=== PATIENT | male | born 1935 | race Caucasian/White ===

== ENCOUNTER → 2018-02-24 | Outpatient (CLI) | payer MEDICARE ==
--- NOTE | 2018-02-24 08:58 | US ---
EXAMINATION TYPE: US abdomen comp/pelvis limited DATE OF EXAM: 02/24/2018 COMPARISON: NONE CLINICAL HISTORY: R10.9 ABD PAIN. Intermittent pelvic fullness EXAM MEASUREMENTS: Liver Length: 14.0 cm Gallbladder Wall: 0.3 cm CBD: 0.4 cm Spleen: 9.3 cm Right Kidney: 13.0 x 5.6 x 3.9 cm Left Kidney: 10.5 x 5.4 x 4.6 cm Technical limitations due to large amount of overlying bowel content Pancreas: Obscured by bowel gas Liver: only seen intercostally, possible hyperechoic area = 1.0cm Gallbladder: no evidence of stones CBD: appears wnl Spleen: appears wnl Right Kidney: multiple cystic areas, largest = 3.2 x 2.8 x 2.5cm, dense echogenic area lower = 0.9cm Left Kidney: no evidence of hydronephrosis Upper IVC: wnl Abd Aorta: limited evaluation due to overlying bowel content Bladder: appears wnl Bilateral Jets Seen yes Prostate appears prominent IMPRESSION: 1. Hyperechoic focus within the liver measures 1 cm and could reflect hemangioma. Consider correlatio n with CT. 2. Multiple right-sided renal cysts. Nonobstructing right-sided nephrolithiasis difficult to exclude. 3. Prostate enlargement.
== END | disposition home or self-care (01) ==
LOC: RADUSWWP 06:58
PROVIDERS: ATTEND Internal Medicine
DX: N28.1 Cyst of kidney, acquired (principal); N40.0 Benign prostatic hyperplasia without lower urinary tract symptoms
CPT/HCPCS: 76700; 76857

== ENCOUNTER 2019-08-28 14:51 | Emergency (ER) | payer MEDICARE ==
[2019-08-28 15:17] VITALS: TEMP 98.4
[2019-08-28 16:32] LABS: Amorphous Sediment,Urine Rare /hpf; Appearance,Urine Cloudy (Clear); Bilirubin,Urine Negative (Negative); Blood,Urine Small (Negative); Color,Urine Yellow; Glucose,Urine (UA) Negative (Negative); Ketones,Urine 2+ (Negative); Leukocyte Esterase,Urine Negative (Negative); Mucus,Urine Rare /hpf; Nitrite,Urine Negative (Negative); Protein,Urine Negative (Negative); RBC,Urine 16 /hpf (0-5); Specific Gravity,Urine 1.014 (1.001-1.035); Urobilinogen,Urine <2.0 mg/dL (<2.0); WBC,Urine <1 /hpf (0-5)
[2019-08-28] MEDS ORDERED: LIDOCAINE VISCOUS 2% 15 ML CUP MUCOUS MEM ONE (16:38)
[2019-08-28] MEDS ORDERED: DEXAMETHASONE SOD PHOSPHATE 10 MG/ML 1 ML VIAL IV STA (16:39)
[2019-08-28 17:08] LABS: Basophils # (A) 0.1 k/uL (0-0.2); Basophils % (A) 1 %; Eosinophils # (A) 0.2 k/uL (0-0.7); Eosinophils % (A) 2 %; HCT 44.6 % (39.0-53.0); HGB 14.8 gm/dL (13.0-17.5); Lymphocytes # (A) 0.4 k/uL (1.0-4.8); Lymphocytes % (A) 4 %; MCH 29.5 pg (25.0-35.0); MCHC 33.2 g/dL (31.0-37.0); MCV 88.7 fL (80.0-100.0); Mean Platelet Volume 6.9; Monocytes # (A) 0.5 k/uL (0-1.0); Monocytes % (A) 5 %; Neutrophils # (A) 9.3 k/uL (1.3-7.7); Neutrophils % (A) 88 %; Platelet Count 130 k/uL (150-450); RBC 5.03 m/uL (4.30-5.90); RDW 13.4 % (11.5-15.5); WBC 10.7 k/uL (3.8-10.6)
[2019-08-28 17:20] LABS: ALT 24 U/L (21-72); AST 24 U/L (17-59); African American GFR (CKD) >90 (>60 ml/min/1.73 sqM); Albumin 3.8 g/dL (3.5-5.0); Alkaline Phosphatase 38 U/L (38-126); Anion Gap 7 mmol/L; Blood Urea Nitrogen 13 mg/dL (9-20); Calcium 8.8 mg/dL (8.4-10.2); Carbon Dioxide 29 mmol/L (22-30); Chloride 102 mmol/L (98-107); Glucose 138 mg/dL (74-99); Potassium 3.5 mmol/L (3.5-5.1); Sodium 138 mmol/L (137-145); Total Protein 6.4 g/dL (6.3-8.2)
[2019-08-28] MEDS ORDERED: SODIUM CHLORIDE 0.9% 1,000 ML IV ONE (18:10)
--- NOTE | 2019-08-28 18:32 | CT ---
EXAMINATION TYPE: CT soft tissue neck w con DATE OF EXAM: 08/28/2019 6:15 PM COMPARISON: None HISTORY: weakness, sore throat CT DLP: 218.5 mGycm Automated exposure control for dose reduction was used. CONTRAST: CT scan of the neck is performed following with IV Contrast, patient injected with 100 mL of Isovue 3 00. Axial images are obtained, coronal and sagittal reformatted images are reviewed. FINDINGS: There are small cysts in both thyroid lobes. Superior mediastinum is intact without evidence of adeno thiago. The trachea is intact. Epiglottis appears normal. Subglottic and glottic trachea appear normal . The prevertebral soft tissues are not enlarged. The tongue appears symmetric. Parotid glands are symmetric. Submandibular salivary glands are symmetric. There is normal contrast o pacification of the carotid arteries and jugular veins. I see no significant cervical adenopathy. The re is a prominent soft palate. There is no evidence of a pharyngeal mass. The visualized paranasal sinuses appear intact. There are mild multilevel spondylotic changes in the cervical spine. IMPRESSION: Elongated soft palate but no evidence of a mass. Normal epiglottis.
[2019-08-28 18:38] VITALS: BP 143/86; PULSE 83; RESP 16
--- NOTE | 2019-08-28 19:07 | ED ---
ENT HPI - General Chief complaint: ENT Stated complaint: Sore throat, sleeping alot Time Seen by Provider: 08/28/19 15:15 Source: patient, family Mode of arrival: wheelchair Limitations: no limitations - History of Present Illness Initial comments: Patient is a 83-year-old male past medical history of A. fib who presents to the emergency room with reported sore throat for the past 24 hours and increase sleeping. The patient denies any sick contacts or recent travel. Stated that his sore throat started last night. He reports odynophagia or hoarseness to his voice. Denies any drooling, trismus or stridor. Reports to decrease oral intake because of the pain. No recorded fevers or chills. Denies any neck pain. No cough or shortness of breath. Denies a sensation that his airway is closing off. No history of similar in the past. No chest pain, abdominal pain or changes in his bowel or bladder habits. Denies dentalgia, nasal congestion or ear pain. There are no other alleviating, precipitating or modifying factors - Related Data Previous Rx's Medication Instructions Recorded Amoxicillin 875 mg PO Q12HR #20 tablet 08/28/19 Lidocaine Viscous [Xylocaine 10 mg MUCOUS MEM TID PRN #100 ml 08/28/19 Viscous 2%] Allergies Allergy/AdvReac Type Severity Reaction Status Date / Time No Known Allergies Allergy Verified 08/28/19 15:17 Review of Systems ROS Statement: Those systems with pertinent positive or pertinent negative responses have been documented in the HPI. ROS Other: All systems not noted in ROS Statement are negative. Past Medical History Past Medical History: Atrial Fibrillation History of Any Multi-Drug Resistant Organisms: None Reported Past Surgical History: Ablation, Hernia Repair Past Psychological History: No Psychological Hx Reported Smoking Status: Former smoker Past Alcohol Use History: Occasional Past Drug Use History: None Reported General Exam Limitations: no limitations General appearance: alert, in no apparent distress Head exam: Present: atraumatic, normocephalic, normal inspection Eye exam: Present: normal appearance, PERRL, EOMI. Absent: scleral icterus, conjunctival injection, periorbital swelling ENT exam: Present: mucous membranes dry, TM's normal bilaterally, normal external ear exam, other (moderate amount of swellling to the uvula. Some associated swelling and redness to the posterior phaynx. Uvula remains midline. No tonsilar enlargement. No signs of peritonsilar abscess. No drooling, trisumus , hoarseness or stridor. ) Neck exam: Present: normal inspection. Absent: tenderness, meningismus, lymphadenopathy Respiratory exam: Present: normal lung sounds bilaterally. Absent: respiratory distress, wheezes, rales, rhonchi, stridor Cardiovascular Exam: Present: regular rate, normal rhythm, normal heart sounds. Absent: systolic murmur, diastolic murmur, rubs, gallop, clicks GI/Abdominal exam: Present: soft, normal bowel sounds. Absent: distended, tenderness, guarding, rebound, rigid Extremities exam: Present: normal inspection, full ROM, normal capillary refill. Absent: tenderness, pedal edema, joint swelling, calf tenderness Back exam: Present: normal inspection Neurological exam: Present: alert, oriented X3, CN II-XII intact Psychiatric exam: Present: normal affect, normal mood Skin exam: Present: warm, dry, intact, normal color. Absent: rash Course Vital Signs 08/28/19 08/28/19 15:13 18:37 Temperature 98.4 F Pulse Rate 77 83 Respiratory 22 16 Rate Blood Pressure 146/69 143/86 O2 Sat by Pulse 97 99 Oximetry Medical Decision Making - Medical Decision Making Upon arrival in patient is placed into room 22. A thorough history and physical exam was performed. The patient was given 2% viscous lidocaine which she swished and swallowed. I also provided him with 10 mg of Decadron IV . Peripheral IV was established. I also gave him a liter bolus of normal saline. Recommended completing laboratory studies and a CT of the patient's throat because of the noted hoarseness with posterior pharyngeal swelling with inability to see the entire posterior pharynx. Laboratory studies did demonstrate a white count of 10.7. Platelets were mildly low at 130. CMP shows a glucose of 138. UA shows 2+ ketones, small blood, 16 red blood cells. Strep testing was performed by the RN and is negative. CT soft tissue neck demonstra miguel elongated soft palate but no evidence of a mass. Normal epiglottis. I reevaluated the patient he reports to great improvement in his pain with the medication administration. Physical exam does demonstrate signs of uvulitis. The patient continues to demonstrate normal vital signs. I did discuss the blood seen in his UA. Patient states he has this before in the past and has been previously evaluated. I did inform him that he needs to see his primary care physician in regards to this and possibly a urologist if it persists. Patient demonstrates no signs of respiratory distress. He'll be discharged home with a prescription for viscous lidocaine. I also placed the patient on amoxici llin. We'll await strep cultures. The patient needs follow up with his primary care physician in 2-4 days. If he has any new or worsening symptoms he should return to the emergency room. Patient was in agreement with the treatment plan he was discharged home in stable condition - Lab Data Result diagrams: 08/28/19 16:54 08/28/19 16:54 Lab Results 08/28/19 08/28/19 08/28/19 Range/Units 16:15 16:15 16:54 WBC 10.7 H (3.8-10.6) k/uL RBC 5.03 (4.30-5.90) m/uL Hgb 14.8 (13.0-17.5) gm/dL Hct 44.6 (39.0-53.0) % MCV 88.7 (80.0-100.0) fL MCH 29.5 (25.0-35.0) pg MCHC 33.2 (31.0-37.0) g/dL RDW 13.4 (11.5-15.5) % Plt Count 130 L (150-450) k/uL Neutrophils % 88 % Lymphocytes % 4 % Monocytes % 5 % Eosinophils % 2 % Basophils % 1 % Neutrophils # 9.3 H (1.3-7.7) k/uL Lymphocytes # 0.4 L (1.0-4.8) k/uL Monocytes # 0.5 (0-1.0) k/uL Eosinophils # 0.2 (0-0.7) k/uL Basophils # 0.1 (0-0.2) k/uL Sodium (137-145) mmol/L Potassium (3.5-5.1) mmol/L Chloride (98-107) mmol/L Carbon Dioxide (22-30) mmol/L Anion Gap mmol/L BUN (9-20) mg/dL Creatinine (0.66-1.25) mg/dL Est GFR (CKD-EPI)AfAm (>60 ml/min/1.73 sqM) Est GFR (CKD-EPI)NonAf (>60 ml/min/1.73 sqM) Glucose (74-99) mg/dL Plasma Lactic Acid Michele (0.7-2.0) mmol/L Calcium (8.4-10.2) mg/dL Total Bilirubin (0.2-1.3) mg/dL AST (17-59) U/L ALT (21-72) U/L Alkaline Phosphatase (38-126) U/L Total Protein (6.3-8.2) g/dL Albumin (3.5-5.0) g/dL Urine Color Yellow Urine Appearance Cloudy (Clear) Urine pH 7.0 (5.0-8.0) Ur Specific [place] 1.014 (1.001-1.035) Urine Protein Negative (Negative) Urine Glucose (UA) Negative (Negative) Urine Ketones 2+ H (Negative) Urine Blood Small H (Negative) Urine Nitrite Negative (Negative) Urine Bilirubin Negative (Negative) Urine Urobilinogen <2.0 (<2.0) mg/dL Ur Leukocyte Esterase Negative (Negative) Urine RBC 16 H (0-5) /hpf Urine WBC <1 (0-5) /hpf Amorphous Sediment Rare H (None) /hpf Urine Mucus Rare H (None) /hpf Group A Strep Rapid Negative (Negative) 08/28/19 08/28/19 Range/Units 16:54 16:54 WBC (3.8-10.6) k/uL RBC (4.30-5.90) m/uL Hgb (13.0-17.5) gm/dL Hct (39.0-53.0) % MCV (80.0-100.0) fL MCH (25.0-35.0) pg MCHC (31.0-37.0) g/dL RDW (11.5-15.5) % Plt Count (150-450) k/uL Neutrophils % % Lymphocytes % % Monocytes % % Eosinophils % % Basophils % % Neutrophils # (1.3-7.7) k/uL Lymphocytes # (1.0-4.8) k/uL Monocytes # (0-1.0) k/uL Eosinophils # (0-0.7) k/uL Basophils # (0-0.2) k/uL Sodium 138 (137-145) mmol/L Potassium 3.5 (3.5-5.1) mmol/L Chloride 102 (98-107) mmol/L Carbon Dioxide 29 (22-30) mmol/L Anion Gap 7 mmol/L BUN 13 (9-20) mg/dL Creatinine 0.78 (0.66-1.25) mg/dL Est GFR (CKD-EPI)AfAm >90 (>60 ml/min/1.73 sqM) Est GFR (CKD-EPI)NonAf 84 (>60 ml/min/1.73 sqM) Glucose 138 H (74-99) mg/dL Plasma Lactic Acid Michele 0.8 (0.7-2.0) mmol/L Calcium 8.8 (8.4-10.2) mg/dL Total Bilirubin 1.0 (0.2-1.3) mg/dL AST 24 (17-59) U/L ALT 24 (21-72) U/L Alkaline Phosphatase 38 (38-126) U/L Total Protein 6.4 (6.3-8.2) g/dL Albumin 3.8 (3.5-5.0) g/dL Urine Color Urine Appearance (Clear) Urine pH (5.0-8.0) Ur Specific [place] (1.001-1.035) Urine Protein (Negative) Urine Glucose (UA) (Negative) Urine Ketones (Negative) Urine Blood (Negative) Urine Nitrite (Negative) Urine Bilirubin (Negative) Urine Urobilinogen (<2.0) mg/dL Ur Leukocyte Esterase (Negative) Urine RBC (0-5) /hpf Urine WBC (0-5) /hpf Amorphous Sediment (None) /hpf Urine Mucus (None) /hpf Group A Strep Rapid (Negative) Disposition Clinical Impression: Uvulitis Disposition: HOME SELF-CARE Condition: Stable Instructions (If sedation given, give patient instructions): Uvulitis (ED) Prescriptions: Amoxicillin 875 mg PO Q12HR #20 tablet Lidocaine Viscous [Xylocaine Viscous 2%] 10 mg MUCOUS MEM TID PRN #100 ml PRN Reason: Sore Throat Is patient prescribed a controlled substance at d/c from ED?: No Referrals: Eloy Laguna MD [Primary Care Provider] - 1-2 days Time of Disposition: 19:07
== END 2019-08-28 19:45 | disposition home or self-care (01) ==
LOC: EC 14:51
DX: K12.2 Cellulitis and abscess of mouth (principal); D69.6 Thrombocytopenia, unspecified; G47.10 Hypersomnia, unspecified; I48.91 Unspecified atrial fibrillation; Z98.890 Other specified postprocedural states; Z87.891 Personal history of nicotine dependence
CPT/HCPCS: 36415; 80053; 83605; 85025; 81001; 87081; 87430; 70491; 99284; 96374; 96361; J1100; Q9967

== ENCOUNTER → 2019-10-22 | Outpatient (CLI) | payer MEDICARE ==
--- NOTE | 2019-10-22 11:07 | XR ---
EXAMINATION TYPE: XR chest 2V DATE OF EXAM: 10/22/2019 COMPARISON: NONE HISTORY: Atrial fibrillation. Chest pain. TECHNIQUE: Frontal and lateral views of the chest are obtained. FINDINGS: There is no focal air space opacity, pleural effusion, or pneumothorax seen. The cardiac silhouette size is within normal limits. The osseous structures are intact. Mild degenerative michelle es of the spine. Diffuse osseous demineralization. Pulmonary hyperinflation suggests underlying COPD. IMPRESSION: No acute cardiopulmonary process.
--- NOTE | 2019-10-22 12:09 | MR ---
EXAMINATION TYPE: MR brain wo/w con DATE OF EXAM: 10/22/2019 COMPARISON: None HISTORY: TIA TECHNIQUE: Multiplanar, multisequence images of the brain and brainstem is performed without and with IV contras t, utilizing 7.5 mL intravenous Gadavist . FINDINGS: Diffusion weighted images demonstrate no evidence of a recent infarct or other diffusion ab normality. There are moderate changes of degenerative change with a greater central component. There are a few scattered focal areas of abnormal signal the white matter which are nonspecific but m ost typical remote microvascular ischemia. More localized area within the left cortex superiorly of t he frontal bone appears to be an extra-axial area of enhancement. Measures approximately 1.5 x 1.0 cm likely in the basis of a meningioma. Some mild mass effect upon the adjacent cortex. Small subcutaneous nodule posterior soft tissues measuring 1 cm at the level of C2 is nonspecific dayton uld be correlated clinically just beneath the epidermis. Midline structures demonstrate normal morphology. The craniocervical junction appears within normal limits. The dural venous sinuses appear patent. Changes of chronic sinusitis noted. Nasal septal dev iation noted.. IMPRESSION: 1. Moderate degenerative change with a greater central component. Normal pressure hydrocephalus in th e differential diagnosis. 2. There is a 1.5 x 1.0 left parietal convexity extra-axial enhancing lesion most typical of meningio ma with mild mass effect upon the adjacent cortex. 3. Mild nonspecific white matter changes most typical remote microvascular ischemia. 4. Within the posterior subcutaneous tissues at the level C2 there is a nonspecific 1 cm nodule with some enhancement correlate clinically.
== END | disposition home or self-care (01) ==
LOC: RADMRIMAIN 09:42
PROVIDERS: ATTEND Internal Medicine Geriatric Medicine
DX: D32.0 Benign neoplasm of cerebral meninges (principal); R90.89 Other abnormal findings on diagnostic imaging of central nervous system; I67.82 Cerebral ischemia; G93.89 Other specified disorders of brain; I48.0 Paroxysmal atrial fibrillation
CPT/HCPCS: 71046; 70553; A9585

== ENCOUNTER 2021-03-20 14:33 | Inpatient (IN) | payer MEDICARE ==
--- NOTE | 2021-03-20 15:00 | ED ---
General Adult HPI - General Chief complaint: Neuro Symptoms/Deficit Stated complaint: Poss stroke Time Seen by Provider: 03/20/21 14:44 Source: patient, family, RN notes reviewed Mode of arrival: wheelchair Limitations: no limitations - History of Present Illness Initial comments: Patient is a pleasant 85-year-old male presenting to the emergency department with concern for facial droop. Patient has had fatigue for the past 2 days. Questionable facial droop starting yesterday. No speech changes. No visual changes. No history of similar symptoms previously. 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 No other areas of weakness. No difficulty with ambulation. No confusion. - Related Data Home Medications Medication Instructions Recorded Confirmed Ascorbic Acid [Vitamin C] 500 mg PO DAILY 03/20/21 03/20/21 Cholecalciferol [Vitamin D3 (25 50 mcg PO DAILY 03/20/21 03/20/21 Mcg = 1000 Iu)] Lisinopril-Hctz 20-12.5 mg 1 tab PO DAILY 03/20/21 03/20/21 [Zestoretic 20-12.5] Pravastatin Sodium [Pravachol] 20 mg PO DAILY 03/20/21 03/20/21 Rivaroxaban [Xarelto] 20 mg PO DAILY 03/20/21 03/20/21 Allergies Allergy/AdvReac Type Severity Reaction Status Date / Time No Known Allergies Allergy Verified 03/20/21 16:04 Review of Systems ROS Statement: Those systems with pertinent positive or pertinent negative responses have been documented in the HPI. ROS Other: All systems not noted in ROS Statement are negative. Constitutional: Denies: fever Eyes: Denies: eye pain ENT: Denies: ear pain Respiratory: Denies: cough Cardiovascular: Denies: chest pain Endocrine: Denies: fatigue Gastrointestinal: Denies: abdominal pain Genitourinary: Denies: dysuria Musculoskeletal: Denies: back pain Skin: Denies: rash Neurological: Reports: as per HPI, weakness. Denies: headache Past Medical History Past Medical History: Atrial Fibrillation History of Any Multi-Drug Resistant Organisms: None Reported Past Surgical History: Ablation, Hernia Repair Past Psychological History: No Psychological Hx Reported Smoking Status: Never smoker Past Alcohol Use History: Occasional Past Drug Use History: None Reported General Exam Limitations: no limitations General appearance: alert, in no apparent distress Head exam: Present: normocephalic Eye exam: Present: normal appearance, PERRL, EOMI ENT exam: Present: normal oropharynx Neck exam: Present: normal inspection Respiratory exam: Present: normal lung sounds bilaterally Cardiovascular Exam: Present: regular rate, normal rhythm GI/Abdominal exam: Present: soft. Absent: tenderness Extremities exam: Present: normal inspection Neurological exam: Present: alert, oriented X3, CN II-XII intact (Except for left facial droop with patient is able to overcome.), motor sensory deficit (Left facial droop, mild patient is able to overcome) Expanded Neurological exam: Present: protecting the airway Patient oriented to: Present: person, place, time Speech: Present: fluid speech Cranial nerves: EOM's Intact: Normal, Facial Sensation: Normal, Facial Palsy with Forehead Movement: Abnormal Left Sensory exam: Upper Extremity Light Touch: Normal, Lower Extremity Light Touch: Normal Motor strength exam: RUE: 5, LUE: 5, RLE: 5, LLE: 5 Eye Response: (4) open spontaneously Motor Response: (6) obeys commands Verbal Response: (5) oriented Psychiatric exam: Present: normal affect, normal mood Skin exam: Present: normal color Course Vital Signs 03/20/21 03/20/21 03/20/21 14:36 14:39 17:39 Temperature 97.8 F Pulse Rate 66 65 70 Respiratory 18 20 20 Rate Blood Pressure 190/46 166/78 167/96 O2 Sat by Pulse 99 97 98 Oximetry EKG Findings - EKG Comments: EKG Findings:: Size pericardial with rate of 57. MI 168. QRS 82. QT 458. QTC 445. Normal axis. Normal QRS. No acute ST change. Medical Decision Making - Medical Decision Making Patient reevaluated and unchanged. Patient has clinical concern for minimal stroke. Patient and family updated on results and plan. Case was discussed with Dr. Valladares, covering for Dr. Laguna, who will admit. - Lab Data Result diagrams: 03/20/21 15:03 03/20/21 15:03 Lab Results 03/20/21 03/20/21 03/20/21 Range/Units 15:03 15:03 15:03 WBC 5.6 (3.8-10.6) k/uL RBC 5.14 (4.30-5.90) m/uL Hgb 15.5 (13.0-17.5) gm/dL Hct 46.4 (39.0-53.0) % MCV 90.3 (80.0-100.0) fL MCH 30.2 (25.0-35.0) pg MCHC 33.5 (31.0-37.0) g/dL RDW 14.0 (11.5-15.5) % Plt Count 125 L (150-450) k/uL MPV 7.7 Neutrophils % 59 % Lymphocytes % 26 % Monocytes % 8 % Eosinophils % 5 % Basophils % 1 % Neutrophils # 3.3 (1.3-7.7) k/uL Lymphocytes # 1.5 (1.0-4.8) k/uL Monocytes # 0.4 (0-1.0) k/uL Eosinophils # 0.3 (0-0.7) k/uL Basophils # 0.0 (0-0.2) k/uL PT 11.3 (9.0-12.0) sec INR 1.1 (<1.2) APTT 28.1 (22.0-30.0) sec Sodium 141 (137-145) mmol/L Potassium 4.0 (3.5-5.1) mmol/L Chloride 104 (98-107) mmol/L Carbon Dioxide 33 H (22-30) mmol/L Anion Gap 4 mmol/L BUN 19 (9-20) mg/dL Creatinine 0.97 (0.66-1.25) mg/dL Est GFR (CKD-EPI)AfAm 83 (>60 ml/min/1.73 sqM) Est GFR (CKD-EPI)NonAf 72 (>60 ml/min/1.73 sqM) Glucose 103 H (74-99) mg/dL Calcium 9.0 (8.4-10.2) mg/dL Total Bilirubin 0.4 (0.2-1.3) mg/dL AST 32 (17-59) U/L ALT 20 (4-49) U/L Alkaline Phosphatase 57 (38-126) U/L Troponin I (0.000-0.034) ng/mL Total Protein 6.6 (6.3-8.2) g/dL Albumin 4.0 (3.5-5.0) g/dL 05/28/21 Range/Units 15:03 WBC (3.8-10.6) k/uL RBC (4.30-5.90) m/uL Hgb (13.0-17.5) gm/dL Hct (39.0-53.0) % MCV (80.0-100.0) fL MCH (25.0-35.0) pg MCHC (31.0-37.0) g/dL RDW (11.5-15.5) % Plt Count (150-450) k/uL MPV Neutrophils % % Lymphocytes % % Monocytes % % Eosinophils % % Basophils % % Neutrophils # (1.3-7.7) k/uL Lymphocytes # (1.0-4.8) k/uL Monocytes # (0-1.0) k/uL Eosinophils # (0-0.7) k/uL Basophils # (0-0.2) k/uL PT (9.0-12.0) sec INR (<1.2) APTT (22.0-30.0) sec Sodium (137-145) mmol/L Potassium (3.5-5.1) mmol/L Chloride (98-107) mmol/L Carbon Dioxide (22-30) mmol/L Anion Gap mmol/L BUN (9-20) mg/dL Creatinine (0.66-1.25) mg/dL Est GFR (CKD-EPI)AfAm (>60 ml/min/1.73 sqM) Est GFR (CKD-EPI)NonAf (>60 ml/min/1.73 sqM) Glucose (74-99) mg/dL Calcium (8.4-10.2) mg/dL Total Bilirubin (0.2-1.3) mg/dL AST (17-59) U/L ALT (4-49) U/L Alkaline Phosphatase (38-126) U/L Troponin I <0.012 (0.000-0.034) ng/mL Total Protein (6.3-8.2) g/dL Albumin (3.5-5.0) g/dL - Radiology Data Radiology results: report reviewed (Computed tomography scan of the brain shows atrophy. No acute intercranial process.), image reviewed (Chest x-ray shows no acute process) Disposition Clinical Impression: Cerebrovascular accident (CVA) Disposition: ADMITTED IP TO THIS HOSP Is patient prescribed a controlled substance at d/c from ED?: No Referrals: Eloy Laguna MD [Primary Care Provider] - 1-2 days Decision Time: 18:01
[2021-03-20 15:14] LABS: Basophils % (A) 1 %; Eosinophils # (A) 0.3 k/uL (0-0.7); Eosinophils % (A) 5 %; HCT 46.4 % (39.0-53.0); HGB 15.5 gm/dL (13.0-17.5); Lymphocytes # (A) 1.5 k/uL (1.0-4.8); Lymphocytes % (A) 26 %; MCH 30.2 pg (25.0-35.0); MCHC 33.5 g/dL (31.0-37.0); MCV 90.3 fL (80.0-100.0); Mean Platelet Volume 7.7; Monocytes # (A) 0.4 k/uL (0-1.0); Monocytes % (A) 8 %; Neutrophils # (A) 3.3 k/uL (1.3-7.7); Neutrophils % (A) 59 %; Platelet Count 125 k/uL (150-450); RBC 5.14 m/uL (4.30-5.90); WBC 5.6 k/uL (3.8-10.6)
[2021-03-20 15:20] LABS: Total Bilirubin 0.4 mg/dL (0.2-1.3); Total Protein 6.6 g/dL (6.3-8.2)
[2021-03-20 15:22] LABS: INR 1.1 (<1.2); Partial Thromboplastin Time 28.1 sec (22.0-30.0); Prothrombin Time 11.3 sec (9.0-12.0)
--- NOTE | 2021-03-20 16:56 | XR ---
EXAMINATION TYPE: XR chest 2V DATE OF EXAM: 03/20/2021 COMPARISON: 10/22/2019 HISTORY: Atrial fibrillation TECHNIQUE: 2 views FINDINGS: There is no heart failure nor confluent pneumonic infiltrate. Costophrenic angles are clear . There are no hilar masses. Bony thorax is intact. There are chest leads. IMPRESSION: No active cardiopulmonary disease. No change.
--- NOTE | 2021-03-20 17:12 | CT ---
EXAMINATION TYPE: CT brain wo con DATE OF EXAM: 03/20/2021 COMPARISON: None HISTORY: Facial droop and confusion. CT DLP: 1099.4 mGycm Automated exposure control for dose reduction was used. There is cerebral atrophy. There is no mass effect nor midline shift. There is no sign of intracrania l hemorrhage. Calvarium is intact. There is normal aeration of the mastoid sinuses. IMPRESSION: Cerebral atrophy. No acute intracranial abnormality.
[2021-03-20] MEDS ORDERED: ASPIRIN 325 MG TAB PO STA (18:01)
--- NOTE | 2021-03-20 19:11 | US ---
EXAMINATION TYPE: US carotid duplex BILAT DATE OF EXAM: 03/20/2021 COMPARISON: NONE CLINICAL HISTORY: Stenosis. facial droop, weakness EXAM MEASUREMENTS: RIGHT: Peak Systolic Velocity (PSV) cm/sec ----- Right CCA: 74.6 ----- Right ICA: 88.9 ----- Right ECA: 115.1 ICA/CCA ratio: 1.2 RIGHT: End Diastole cm/sec ----- Right CCA: 16.4 ----- Right ICA: 26.3 ----- Right ECA: 11.5 LEFT: Peak Systolic Velocity (PSV) cm/sec ----- Left CCA: 87.1 ----- Left ICA: 79.0 ----- Left ECA: 103.4 ICA/CCA ratio: 0.9 LEFT: End Diastole cm/sec ----- Left CCA: 17.1 ----- Left ICA: 24.1 ----- Left ECA: 8.9 VERTEBRALS (direction of flow): Right Vertebral: Antegrade Left Vertebral: Antegrade Rhythm: Normal Mild plaque bilateral bifurcations. No evidence of elevated velocities. IMPRESSION: There is antegrade flow in the vertebral arteries. The images and measurements suggest less than 20% stenosis in both internal carotid arteries. Criteria for Assigning % of Stenosis / Diameter reduction (Estimation based on the indirect measurements of the internal carotid artery velocities (ICA PSV). 1. Normal (no stenosis)=ICA PSV < 125 cm/s: ratio < 2.0: ICA EDV<40 cm/s. 2. Less than 50% stenosis=ICA PSV < 125 cm/s: ratio < 2.0: ICA EDV<40 cm/s. 3. 50 to 69% stenosis=ICA PSV of 125 to 230 cm/s: ration 2.0 ? 4.0: ICA EDV 40-100 cm/s. 4. Greater than 70% stenosis to near occlusion= ICA PSV > 230 cm/s: ratio > 4.0: ICA EDV > 100 cm/s. 5. Near occlusion= ICA PSV velocities may be low or undetectable: variable ratio and ICA EDV. 6. Total occlusion=unable to detect flow.
[2021-03-21 08:18] VITALS: BP 148/67; PULSE 65; RESP 18; TEMP 97.7
[2021-03-21] MEDS ORDERED: PRAVASTATIN SODIUM 20 MG TAB PO SCH (10:45)
[2021-03-21] MEDS ORDERED: LISINOPRIL-HCTZ 20-12.5 MG 1 EACH TAB PO SCH (10:45)
--- NOTE | 2021-03-21 11:25 | P.CNNES ---
History of Present Illness Consult date: 03/21/21 Requesting physician: Vinicius Romero Reason for Consult: CVA/TIA History of Present Illness: This is an 85-year-old gentleman with medical history of atrial fibrillation that presented emergency department on 03/20/2021 for concern of questionable facial droop. The patient has been feeling generalized weakness/fatigue for the past couple days. 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 Sergio Carpenter) and his teaching aide felt he had facial asymetry which the patient did not notice and he did not have any neurological focal deficit or slurring of speech, visual disturbance. I personally spoke with Dr. Carpenter and he felt face was asymetrical and felt possibly right but felt it is questionable but he said he is not sure if his facial is same especially he has not seen him without mask in last 1-2 years because of COVID. He notified him to comes to the emergency department as result which hed did and feel he is doing well and patient denies of facial weakness and denies any new neurological problems. He said is walking without any difficulty. Patient denies history of stroke or TIA in the past. Patient on medication includes Xarelto 20 mg daily, pravastatin 20 mg daily, lisinopril/hydrochlorothiazide, vitamin D 3 and vitamin C. He is not on antiplatelets. Some of the workup in the hospital consisted of: Initial vitals: Blood pressure of 190/46, heart rate of 66, respiratory of 18, temperature of 97.8 Fahrenheit oral and pulse ox of 99% room air. CT of the head is reported as cerebral atrophy. No acute abnormality. Carotid duplex is reported as there is anterior grade flow in the vertebral arteries. Images and measurements suggest less than 20% stenosis in both internal carotid arteries. EKG is reported as sinus bradycardia. Otherwise normal EKG. Patient CBC old female was remarkable was the platelet is 125 which is low. Patient initial serum glucose is 103 which is unremarkable and the rest of the comes to pattern is unremarkable. Review of Systems Review of system: The 12 point system was reviewed and apparent positive and negative per HPI. Past Medical History Past Medical History: Atrial Fibrillation History of Any Multi-Drug Resistant Organisms: None Reported Past Surgical History: Ablation, Hernia Repair Past Anesthesia/Blood Transfusion Reactions: No Reported Reaction Past Psychological History: No Psychological Hx Reported Smoking Status: Never smoker Past Alcohol Use History: Occasional Past Drug Use History: None Reported - Past Family History Father Family Medical History: Cancer Medications and Allergies Home Medications Medication Instructions Recorded Confirmed Type Ascorbic Acid [Vitamin C] 500 mg PO DAILY 03/20/21 03/20/21 History Cholecalciferol [Vitamin D3 (25 50 mcg PO DAILY 03/20/21 03/20/21 History Mcg = 1000 Iu)] Lisinopril-Hctz 20-12.5 mg 1 tab PO DAILY 03/20/21 03/20/21 History [Zestoretic 20-12.5] Pravastatin Sodium [Pravachol] 20 mg PO DAILY 03/20/21 03/20/21 History Rivaroxaban [Xarelto] 20 mg PO DAILY 03/20/21 03/20/21 History Allergies Allergy/AdvReac Type Severity Reaction Status Date / Time No Known Allergies Allergy Verified 03/20/21 16:04 Physical Examination - Vital Signs Vital Signs: Vital Signs Temp Pulse Pulse Resp BP BP Pulse Ox 03/21/21 08:00 97.7 F 65 18 148/67 98 03/21/21 06:54 98.1 F 74 17 136/74 97 03/21/21 05:02 97.9 F 72 17 140/72 95 03/21/21 03:56 98.0 F 71 17 136/73 95 03/21/21 03:02 98.0 F 71 17 136/73 95 03/21/21 01:55 71 19 03/21/21 00:53 97.6 F 67 19 102/53 96 03/21/21 00:00 97.7 F 71 17 155/76 97 03/20/21 23:02 97.8 F 72 17 157/74 97 03/20/21 20:03 97.8 F 72 17 157/74 97 03/20/21 18:59 70 20 139/72 95 03/20/21 17:39 70 20 167/96 98 03/20/21 14:39 65 20 166/78 97 03/20/21 14:36 97.8 F 66 18 190/46 99 Intake and Output 03/20/21 03/21/21 03/21/21 22:59 06:59 14:59 Intake Total 240 Balance 240 Intake: Oral 240 Other: # Voids 3 Weight 83.3 kg 83.3 kg GENERAL: The patient is lying in bed and is not in acute distress. CHEST: The heart rate is regular rate rhythm. No murmurs to auscultation. No carotid bruit bilaterally. LUNG: Clear to auscultation bilaterally no wheezing noted throughout. Not labored breathing. ABDOMEN/GI: Bowel sounds present in all 4 quadrants. No tenderness to palpation throughout. NEUROLOGICAL: Higher mental function: The patient is awake, alert, oriented to self, place and time. Patient is following commands. No aphasia and no neglect. Cranial nerves: The pupils are round, equal and reactive to light and accommodation. Visual reynoso are full to confrontation throughout. Extraocular movement is intact no nystagmus is noted. Facial sensation is normal to touch throughout. The facial strength is normal throughout. Hearing is normal bilaterally to hand rub. Tongue is midline and moved [id number] without any difficulty. No dysarthria is noted. Shoulder shrug is normal bilaterally. Motor: Gait is normal with normal arm swings. The strength is 5 over 5 throughout. Normal tone and bulk. Cerebellum: Normal finger to nose bilaterally. Sensation: Sensation is normal to touch throughout. Reflexes (right/left): 2+ throughout. Plantars are downgoing bilaterally. Results Rosales virus PCR was not detected. - Laboratory Findings CBC and BMP: 03/20/21 15:03 03/20/21 15:03 Abnormal Lab Findings: Abnormal Labs 03/20/21 03/20/21 15:03 15:03 Plt Count 125 L Carbon Dioxide 33 H Glucose 103 H Assessment and Plan Assessment: Questional right facial droop. Cannot exclude TIA but again the facial asymmetry was questionable Atrial fibrillation on Xarelto Chronic thrombocytopenia (125K) Plan: CT of the head is reported as cerebral atrophy. No acute abnormality. Carotid duplex is reported as there is anterior grade flow in the vertebral arteries. Images and measurements suggest less than 20% stenosis in both internal carotid arteries. I spoke with his teaching aide and we agree to continue his home anticoagulation (xarelto) and no need for antiplatelets unless patient has further symptoms. Patient to be on Pravastatin 40mg qhs. 2-D echo, lipid panel I ordered by the primary team and that are pending. 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 Placed the patient on every 4 hours neuro checks and Is on continuous cardiac monitoring We'll defer the rest of the medical management to the primary team Patient needs to follow-up with his teaching aide as outpatient. There is no further work-up. Thank you for the consultation. Eliel Yoo M.D. Neuro-hospitalist Time with Patient: Greater than 30
--- NOTE | 2021-03-21 12:53 | P.HPIM ---
History of Present Illness H&P Date: 03/21/21 (This document will serve as both H&P and discharge summary) This 85 years old gentleman patient of Dr. Laguna with past medical history of atrial fibrillation on xarelto comes in on 03/20 for a questionable concern for facial droop recognized by the farm adviser. Patient also endorsed weakness for the past 2 days. Cardiology felt there was no facial asymmetry but patient denied any slurring of speech or focal deficit or visual disturbance. Patient was seen by cardiology and cleared the patient. Vitals reviewed patient's blood pressure is 97.7 pulse 65 respiratory 18 blood pressure is 148/67 labs reviewed patient's CBC was unremarkable CMP suggest a sodium 141 potassium 4 carbon dioxide 33 Of 19 creatinine 0.97 glucose 103, COVID negative carotid Dopplers had antegrade flow in the vertebral arteries with less than 20 versus stenosis in both internal carotid arteries. CT head was negative for any acute pathology. Review of Systems Constitutional: Denies chills, Denies fever, Denies lethargy, Denies malaise, Denies poor appetite, Denies weakness, Denies weight loss Eyes: denies decreased vision, denies diplopia, denies discharge, denies pain Ears: deny: decreased hearing Ears, nose, mouth and throat: Denies dental pain, Denies headache, Denies nasal discharge, Denies nose pain Cardiovascular: Denies chest pain, Denies decreased exercise tolerance, Denies edema, Denies high blood pressure, Denies irregular heart beat, Denies palpitations, Denies paroxysmal nocturnal dyspnea, Denies rapid heart beat, Denies shortness of breath Respiratory: Denies congestion, Denies cough, Denies cough with sputum, Denies dyspnea, Denies home oxygen, Denies wheezing Gastrointestinal: Denies abdominal pain, Denies change in bowel habits, Denies coffee ground emesis, Denies early satiety, Denies excessive gas, Denies heartburn, Denies hematemesis, Denies hematochezia, Denies loss of appetite, Denies nausea, Denies vomiting Genitourinary: Denies dysuria, Denies flank pain, Denies kidney stones, Denies menorrhagia, Denies urgency, Denies urinary frequency Musculoskeletal: Denies gait dysfunction, Denies limitation of motion, Denies morning stiffness, Denies muscle cramps Integumentary: Denies rash, Denies wounds, Denies brittle nails, Denies change in hair/nails, Denies darkening of skin Neurological: Denies balance difficulties, Denies change in speech, Denies double vision, Denies gait dysfunction, Denies loss of vision, Denies motor disturbance, Denies numbness, Denies paralysis, Denies paresthesias, Denies seizures Psychiatric: Denies anxiety, Denies depression Endocrine: Denies excessive sweating, Denies excessive thirst, Denies high blood sugars, Denies palpitations Hematologic/Lymphatic: Denies easy bruising, Denies lymphadenopathy Past Medical History Past Medical History: Atrial Fibrillation History of Any Multi-Drug Resistant Organisms: None Reported Past Surgical History: Ablation, Hernia Repair Past Anesthesia/Blood Transfusion Reactions: No Reported Reaction Past Psychological History: No Psychological Hx Reported Smoking Status: Never smoker Past Alcohol Use History: Occasional Past Drug Use History: None Reported - Past Family History Father Family Medical History: Cancer Medications and Allergies Home Medications Medication Instructions Recorded Confirmed Type Ascorbic Acid [Vitamin C] 500 mg PO DAILY 03/20/21 03/20/21 History Cholecalciferol [Vitamin D3 (25 50 mcg PO DAILY 03/20/21 03/20/21 History Mcg = 1000 Iu)] Lisinopril-Hctz 20-12.5 mg 1 tab PO DAILY 03/20/21 03/20/21 History [Zestoretic 20-12.5] Rivaroxaban [Xarelto] 20 mg PO DAILY 03/20/21 03/20/21 History Pravastatin Sodium [Pravachol] 40 mg PO HS #30 tab 03/21/21 Rx Allergies Allergy/AdvReac Type Severity Reaction Status Date / Time No Known Allergies Allergy Verified 03/20/21 16:04 Physical Exam Vitals: Vital Signs Temp Pulse Pulse Resp BP BP Pulse Ox 03/21/21 08:00 97.7 F 65 18 148/67 98 03/21/21 06:54 98.1 F 74 17 136/74 97 03/21/21 05:02 97.9 F 72 17 140/72 95 03/21/21 03:56 98.0 F 71 17 136/73 95 03/21/21 03:02 98.0 F 71 17 136/73 95 03/21/21 01:55 71 19 03/21/21 00:53 97.6 F 67 19 102/53 96 03/21/21 00:00 97.7 F 71 17 155/76 97 03/20/21 23:02 97.8 F 72 17 157/74 97 03/20/21 20:03 97.8 F 72 17 157/74 97 03/20/21 18:59 70 20 139/72 95 03/20/21 17:39 70 20 167/96 98 03/20/21 14:39 65 20 166/78 97 03/20/21 14:36 97.8 F 66 18 190/46 99 Intake and Output 03/20/21 03/21/21 03/21/21 22:59 06:59 14:59 Intake Total 240 Balance 240 Intake: Oral 240 Other: # Voids 3 Weight 83.3 kg 83.3 kg - Constitutional General appearance: cooperative, no acute distress, obese - EENT Eyes: anicteric sclerae, PERRLA, normal appearance ENT: hearing grossly normal - Neck Neck: no lymphadenopathy, normal ROM, no other, no rigidity, no stridor, no thyromegaly - Respiratory Respiratory: bilateral: CTA, negative: diminished, dullness, rales, rhonchi - Cardiovascular Rhythm: Irregularly irregular Heart sounds: normal: S1, S2 Abnormal Heart Sounds: no systolic murmur, no diastolic murmur, no rub, no S3 Gallop, no S4 Gallop, no click, no other - Gastrointestinal General gastrointestinal: normal bowel sounds, soft - Integumentary Integumentary: no rash - Neurologic Neurologic: CNII-XII intact - Musculoskeletal Musculoskeletal: gait normal, strength equal bilaterally - Psychiatric Psychiatric: A&O x's 3, appropriate affect Results CBC & Chem 7: 03/20/21 15:03 03/20/21 15:03 Labs: Abnormal Lab Results - Last 24 Hours (Table) 03/20/21 03/20/21 Range/Units 15:03 15:03 Plt Count 125 L (150-450) k/uL Carbon Dioxide 33 H (22-30) mmol/L Glucose 103 H (74-99) mg/dL Thrombosis Risk Factor Assmnt - DVT/VTE Prophylaxis DVT/VTE Prophylaxis: Pharmacologic Prophylaxis ordered - Choose All That Apply Any of the Below Risk Factors Present?: Yes Each Factor Represents 1 point: Obesity (BMI >25) Other Risk Factors: Yes Each Risk Factor Represents 3 Points: Age 75 years or older Other congenital or acquired thrombophilia - If yes, enter type in comment: No Thrombosis Risk Factor Assessment Total Risk Factor Score: 4 Thrombosis Risk Factor Assessment Level: Moderate Risk Assessment and Plan Plan: #1 TIA, CVA ruled out questionable facial droop. Continue xarelto and pravastatin increased from 20 mg to 40 mg #2 chronic atrial fibrillation on xarelto not on any beta pablo heart rate controlled #3 hypertension continue lisinopril hydrochlorothiazide 20/12.5 mg daily #4 hyperlipidemia continue Pravachol dose increased to 40 mg daily #5 CODE status full code #6 DVT prophylaxis on xarelto #7 disposition patient will be discharged today to home
[2021-03-21 13:10] LABS: Chol/HDL Ratio 2.57; LDL Cholesterol,Calculated 69.4 mg/dL (0.0-131.0); VLDL Calculation 10.6 mg/dL (5.00-40.00)
[2021-03-21] MEDS ORDERED: PRAVASTATIN SODIUM 40 MG TAB PO SCH (21:00)
[2021-03-21] MEDS ORDERED: ATORVASTATIN 40 MG TAB PO SCH (21:00)
[2021-03-22] MEDS ORDERED: ASPIRIN 325 MG TAB PO SCH (09:00)
[2021-03-22] MEDS ORDERED: RIVAROXABAN 20 MG TAB PO SCH (09:00)
--- NOTE | 2021-03-22 09:02 | ECHOF ---
Referral Reason:Thrombus MEASUREMENTS -------- HEIGHT: 175.3 cm WEIGHT: 83.0 kg BP: 136/74 RVIDd: 2.6 cm (< 3.3) IVSd: 1.6 cm (0.6 - 1.1) LVIDd: 2.8 cm (3.9 - 5.3) LVPWd: 1.6 cm (0.6 - 1.1) IVSs: 1.9 cm LVIDs: 2.4 cm LVPWs: 1.6 cm LAESV Index (A-L): 31.92 ml/m Ao Diam: 3.3 cm (2.0 - 3.7) AV Cusp: 2.0 cm (1.5 - 2.6) LA Diam: 3.0 cm (2.7 - 3.8) MV EXCURSION: 18.742 mm (> 18.000) MV EF SLOPE: 147 mm/s (70 - 150) EPSS: 0.6 cm MV E Cuong: 0.74 m/s MV DecT: 202 ms MV A Cuong: 0.46 m/s MV E/A Ratio: 1.59 AR PHT: 920 ms RAP: 5.00 mmHg RVSP: 9.20 mmHg FINDINGS -------- This was a technically good study. The left ventricular size is normal. There is moderate concentric left ventricular hypertrophy. O verall left ventricular systolic function is normal with, an EF between 55 - 60 %. The diastolic fi lling pattern is normal for the age of the patient 8.79. The right ventricle is normal in size. LA is midly dilated 29-33ml/m2. The right atrial size is normal. Aortic valve is trileaflet and is mildly thickened. There is mild aortic regurgitation. The mitral valve is normal. The mitral valve leaflets are mildly thickened. There is trace to mil d mitral regurgitation. There is mild mitral valve prolapse. The tricuspid valve appears structurally normal. Mild tricuspid regurgitation present. Right vent ricular systolic pressure is normal at < 35 mmHg. There is no pulmonic regurgitation present. The aortic root size is normal. Normal inferior vena cava with normal inspiratory collapse consistent with estimated right atrial pre ssure of 5 mmHg. There is no pericardial effusion. CONCLUSIONS -------- 1. The left ventricular size is normal. 2. There is moderate concentric left ventricular hypertrophy. 3. Overall left ventricular systolic function is normal with, an EF between 55 - 60 %. 4. The diastolic filling pattern is normal for the age of the patient 8.79 5. LA is midly dilated 29-33ml/m2. 6. Aortic valve is trileaflet and is mildly thickened. 7. There is mild aortic regurgitation. 8. The mitral valve leaflets are mildly thickened. 9. There is trace to mild mitral regurgitation. 10. There is mild mitral valve prolapse. 11. Mild tricuspid regurgitation present. 12. There is no pericardial effusion. FAMILY ADVOCATE: Blanche Stovall RDCS
== END 2021-03-21 14:16 | disposition home or self-care (01) | DRG 69 ==
LOC: EC 14:33 → 3SCARD 18:00
PROVIDERS: ADMIT Internal Medicine Geriatric Medicine; ATTEND Internal Medicine Geriatric Medicine
DX: G45.9 Transient cerebral ischemic attack, unspecified (principal); I48.20 Chronic atrial fibrillation, unspecified; Z79.01 Long term (current) use of anticoagulants; D69.6 Thrombocytopenia, unspecified; E78.5 Hyperlipidemia, unspecified; I10 Essential (primary) hypertension; R29.810 Facial weakness; Z79.899 Other long term (current) drug therapy; Z20.822 Contact with and (suspected) exposure to COVID-19
CPT/HCPCS: 36415; 70450; 71046; 80053; 80061; 84484; 85025; 85610; 85730; 87635; 93005; 93306; 93880; 99285

== ENCOUNTER → 2021-11-16 | Outpatient (CLI) | payer MEDICARE ==
--- NOTE | 2021-11-16 14:30 | CT ---
EXAMINATION TYPE: CT abdomen pelvis wo con DATE OF EXAM: 11/16/2021 COMPARISON: None HISTORY: 85-year-old male gross hematuria CT DLP: 577.8 mGycm. Automated exposure control for dose reduction was used. TECHNIQUE: Contiguous axial scanning of the abdomen and pelvis without IV contrast. Coronal and sagit manuel reconstructions performed. FINDINGS: Heart normal size without pericardial effusion. Small hiatal hernia. Strandy scarring or atelectasis at the posterior lung bases. No pleural effusion. Nonspecific 1 cm hypodensity right liver lobe inadequately characterized on this noncontrast study, a xial image 19. 6 month follow-up could reassess. Probable cyst. Gallbladder, adrenal glands, spleen, and pancreas show no gross abnormality. Right-sided renal cortical cysts measuring 3.8 cm, 3.2 cm, and 2.2 cm. Nonobstructive right lower roni e renal calculus measuring 6 mm. 3 nonobstructive left lower pole renal calculi measuring up to 5 mm. No hydronephrosis on either side. Mild atherosclerotic calcifications abdominal aorta without aneurysm. No dilated small bowel, free fluid, or free air. No mesenteric or retroperitoneal lymphadenopathy see n. Mild to moderate stool burden. Mild sigmoid diverticulosis. There are bilateral indirect inguinal hernias. On the right, a couple nonobstructed small bowel loops are located within the hernia sac. On the left, nonobstructed proximal sigmoid colon and mesenteric fat is located in the hernia sac. No associated inflammatory changes seen. No mesenteric or retroperitoneal lymphadenopathy seen. Prostate gland is enlarged measuring 6.6 cm wide. Prominent lobulated soft tissue impression onto the posterior bladder base. Some nonspecific calcifications in the right posterior peripheral zone of th e prostate gland. No abnormal fluid collection the pelvis or pelvic lymphadenopathy. Bones: Mild to moderate degenerative change in both hips. Degenerative change with secondary bony ank ylosis of the SI joints. Facet arthropathy and mild degenerative disc disease mid to lower lumbar spine. IMPRESSION: 1. Bilateral nonobstructive renal calculi measuring up to 6 mm. No hydronephrosis. 2. A few renal cortical hypodensities on the right measuring up to 3.8 cm likely benign cysts. 3. Nonspecific 1 cm hypodensity right liver lobe. Six-month follow-up CT with contrast to reassess. Probable cyst. 4. Prostatomegaly at 6.6 cm wide. Contiguous lobulated soft tissue impresses on to the posterior matthew dder base. Correlate for BPH or underlying prostate cancer with PSA values and ultrasound as clinical ly indicated. 5. Moderate sized left and small right indirect inguinal hernias. On the left, nonobstructed proxima l sigmoid colon is located in the hernia sac. On the right, nonobstructed small bowel loop is located in the hernia sac. 6. Mild sigmoid diverticulosis without acute diverticulitis.
== END | disposition home or self-care (01) ==
LOC: RADCTMAIN 13:22
PROVIDERS: ATTEND Urology
DX: N20.0 Calculus of kidney (principal); R93.421 Abnormal radiologic findings on diagnostic imaging of right kidney; R93.2 Abnormal findings on diagnostic imaging of liver and biliary tract; N40.0 Benign prostatic hyperplasia without lower urinary tract symptoms; K40.20 Bilateral inguinal hernia, without obstruction or gangrene, not specified as recurrent
CPT/HCPCS: 74176

== ENCOUNTER 2024-03-30 20:03 | Inpatient (IN) | payer MEDICARE ==
[2024-03-30 21:30] LABS: INR 1.2 (<1.2); Partial Thromboplastin Time 30.6 sec (22.0-30.0); Prothrombin Time 13.1 sec (10.0-12.5)
[2024-03-30 21:32] LABS: ALT 26 U/L (4-49); African American GFR (CKD) 90 (>60 ml/min/1.73 sqM); Anion Gap 2 mmol/L; Blood Urea Nitrogen 16 mg/dL (9-20); Calcium 7.3 mg/dL (8.4-10.2); Carbon Dioxide 28 mmol/L (22-30); Chloride 109 mmol/L (98-107); Glucose 116 mg/dL (74-99); Non-African American GFR(CKD) 78 (>60 ml/min/1.73 sqM); Sodium 139 mmol/L (137-145); Total Bilirubin 0.9 mg/dL (0.2-1.3)
[2024-03-30 21:34] LABS: Basophils % (A) 1 %; Eosinophils # (A) 0.3 k/uL (0-0.7); Eosinophils % (A) 4 %; HCT 38.2 % (39.0-53.0); HGB 11.8 gm/dL (13.0-17.5); Hypochromasia Slight; Lymphocytes % (A) 15 %; MCH 28.7 pg (25.0-35.0); MCHC 30.9 g/dL (31.0-37.0); MCV 92.9 fL (80.0-100.0); Mean Platelet Volume 8.8; Monocytes # (A) 0.8 k/uL (0-1.0); Monocytes % (A) 11 %; Neutrophils # (A) 4.7 k/uL (1.3-7.7); Neutrophils % (A) 68 %; Platelet Count 125 k/uL (150-450); RBC 4.11 m/uL (4.30-5.90); RDW 15.3 % (11.5-15.5)
--- NOTE | 2024-03-30 21:46 | ED ---
Recheck HPI - General Chief Complaint: Extremity Problem,Nontraumatic Stated Complaint: Hypertension Time Seen by Provider: 03/30/24 20:11 Source: EMS, RN notes reviewed, old records reviewed Mode of arrival: EMS Limitations: no limitations, altered mental status - History of Present Illness Initial Comments: This is an 88-year-old male presents for unknown cause. Patient may be admitted to some weakness, allegedly saw primary care today with lower extremity edema and swelling and told to come to the emergency department. MD Complaint: other (Recheck lower extremity edema weakness) -: unknown Symptoms Since Prior Visit: no new symptoms Context: planned re-check Associated Symptoms: none Treatments Prior to Arrival: other (0) - Related Data Home Medications Medication Instructions Recorded Confirmed Ascorbic Acid [Vitamin C] 500 mg PO DAILY 03/20/21 03/31/24 Cholecalciferol [Vitamin D3 (25 50 mcg PO DAILY 03/20/21 03/31/24 Mcg = 1000 Iu)] Acetaminophen Tab [Tylenol] 650 mg PO Q6H PRN 03/31/24 03/31/24 Apixaban [Eliquis] 5 mg PO BID@0800,1700 03/31/24 03/31/24 Diltiazem Cd [Cardizem CD] 120 mg PO DAILY 03/31/24 03/31/24 Donepezil [Aricept] 10 mg PO HS 03/31/24 03/31/24 Folic Acid 1 mg PO DAILY 03/31/24 03/31/24 Ipratropium-Albuterol Nebulize 3 ml INHALATION RT-QID PRN 03/31/24 03/31/24 [Duoneb 0.5 mg-3 mg/3 ml Soln] Mv-Min/Folic/K1/Lycopen/Lutein 1 tab PO DAILY 03/31/24 03/31/24 [Centrum Silver Men Tablet] Rosuvastatin [Crestor] 10 mg PO HS 03/31/24 03/31/24 Spironolactone [Aldactone] 12.5 mg PO DAILY 03/31/24 03/31/24 Tamsulosin [Flomax] 0.4 mg PO DAILY 03/31/24 03/31/24 Previous Rx's Medication Instructions Recorded Furosemide [Lasix] 40 mg PO BID@0900,1600 #60 tab 04/06/24 Metoprolol Tartrate [Lopressor] 100 mg PO BID #60 tab 04/06/24 Potassium Chloride ER [K-Dur 20] 20 meq PO BID #60 tab 04/06/24 QUEtiapine [SEROquel] 12.5 mg PO HS PRN #30 tab 04/06/24 Allergies Allergy/AdvReac Type Severity Reaction Status Date / Time No Known Allergies Allergy Verified 03/31/24 10:51 Review of Systems ROS Statement: Those systems with pertinent positive or pertinent negative responses have been documented in the HPI. ROS Other: All systems not noted in ROS Statement are negative. Past Medical History Past Medical History: Atrial Fibrillation History of Any Multi-Drug Resistant Organisms: None Reported Past Surgical History: Ablation, Hernia Repair Past Anesthesia/Blood Transfusion Reactions: No Reported Reaction Past Psychological History: No Psychological Hx Reported Smoking Status: Never smoker Past Alcohol Use History: Occasional Past Drug Use History: None Reported - Past Family History Father Family Medical History: Cancer General Exam Limitations: altered mental status General appearance: alert, in no apparent distress Head exam: Present: atraumatic, normocephalic, normal inspection Eye exam: Present: normal appearance, PERRL, EOMI. Absent: scleral icterus, conjunctival injection, periorbital swelling ENT exam: Present: normal exam, mucous membranes moist Neck exam: Present: normal inspection. Absent: tenderness, meningismus, lymphadenopathy Respiratory exam: Present: normal lung sounds bilaterally. Absent: respiratory distress, wheezes, rales, rhonchi, stridor Cardiovascular Exam: Present: regular rate, normal rhythm, normal heart sounds. Absent: systolic murmur, diastolic murmur, rubs, gallop, clicks GI/Abdominal exam: Present: soft, normal bowel sounds. Absent: distended, tenderness, guarding, rebound, rigid Extremities exam: Present: normal inspection, full ROM, normal capillary refill. Absent: tenderness, pedal edema, joint swelling, calf tenderness Back exam: Present: normal inspection Neurological exam: Present: alert, oriented X3, CN II-XII intact Psychiatric exam: Present: normal affect, normal mood Skin exam: Present: warm, dry, intact, normal color. Absent: rash Course Vital Signs 03/30/24 03/30/24 03/31/24 20:08 22:58 02:28 Temperature 98.2 F Pulse Rate 82 78 73 Respiratory 20 18 18 Rate Blood Pressure 97/59 113/71 102/77 O2 Sat by Pulse 94 L 94 L 96 Oximetry 03/31/24 03/31/24 03/31/24 04:00 06:28 07:30 Temperature Pulse Rate 85 83 84 Respiratory 18 16 14 Rate Blood Pressure 122/70 104/65 116/68 O2 Sat by Pulse 94 L 95 95 Oximetry 03/31/24 03/31/24 03/31/24 09:10 12:18 14:32 Temperature Pulse Rate 81 87 82 Respiratory 20 16 18 Rate Blood Pressure 119/86 129/71 113/68 O2 Sat by Pulse 95 96 95 Oximetry - Reevaluation(s) Reevaluation #1: 03/30/24 21:53 Medical records reviewed Reevaluation #2: 03/30/24 22:30 Patient has improvement with supplemental oxygen Reevaluation #3: 03/30/24 22:30 Patient informed of results and questions answered Reevaluation #4: Was pt. sent in by a medical professional or institution (, PA, CLEAN ROOM OPERATOR, urgent care, hospital, or senior living...) When possible be specific @ -no Did you speak to anyone other than the patient for history (EMS, parent, family, police, friend...)? What history was obtained from this source @ -no Did you review nursing and triage notes (agree or disagree)? Why? @ -agree Are old charts reviewed (outside hosp., previous admission, EMS record, old EKG, old radiological studies, urgent care reports/EKG's, senior living records)? Report findings @ -yes Differential Diagnosis (chest pain, altered mental status, abdominal pain women, abdominal pain men, vaginal bleeding, weakness, fever, dyspnea, syncope, headache, dizziness, GI bleed, back pain, seizure, CVA, palpatations, mental health, musculoskeletal)? @ -prior EKG interpreted by me (3pts min.). @ -yes X-rays interpreted by me (1pt min.). @ -yes positive for pulmonary edema and pleural effusions CT interpreted by me (1pt min.). @ -no U/S interpreted by me (1pt. min.). @ -no What testing was considered but not performed or refused? (CT, X-rays, U/S, labs)? Why? @ -none What meds were considered but not given or refused? Why? @ -none Did you discuss the management of the patient with other professionals (professionals i.e. , PA, CLEAN ROOM OPERATOR, lab, RT, psych nurse, social media intern, plant pathologist, teacher, school resource officer, case resolution specialist)? Give summary @ -no Was smoking cessation discussed for >3mins.? @ -no Were there social determinants of health that impacted care today? How? (H omelessness, low income, unemployed, alcoholism, drug addiction, transportation, low edu. Level, literacy, decrease access to med. care, assisted, rehab)? @ -none Was there de-escalation of care discussed even if they declined (Discuss DNR or withdrawal of care, Hospice)? DNR status @ -no What co-morbidities impacted this encounter? (DM, HTN, Smoking, COPD, CAD, Cancer, CVA, ARF, Chemo, Hep., AIDS, mental health diagnosis, sleep apnea, morbid obesity)? @ -none Was patient admitted / discharged? Hospital course, mention meds given and route, prescriptions, significant lab abnormalities, going to OR and other pertinent info. @ - 88 male to the ER for evaluation patient will admit for significant pleural effusions edema and CHF Admitted Was critical care preformed (if so, how long)? @ -no Undiagnosed new problem with uncertain prognosis? @ -no Drug Therapy requiring intensive monitoring for toxicity (Heparin, Nitro, Insulin, Cardizem)? @ -no Were any procedures done? @ -no Diagnosis/symptom? @ -CHF, pleural effusions and pulmonary edema Acute, or Chronic, or Acute on Chronic? @ -Acute Uncomplicated (without systemic symptoms) or Complicated (systemic symptoms)? @ -Complicated Side effects of treatment? @ -no Exacerbation, Progression, or Severe Exacerbation? @ -exacerbation Poses a threat to life or bodily function? How? (Chest pain, [place], [place], pneumonia, PE, COPD, DKA, ARF, appy, cholecystitis, CVA, Diverticulitis, Homicidal, Suicidal, threat to staff... and all critical care pts) @ -yes extremes of age Reevaluation #5: Differential Dyspnea: Coronary syndrome, arrhythmia, tamponade, asthma, COPD, pulmonary embolism, pneumonia, pneumothorax, pulmonary effusion, anaphylaxis, diabetic ketoacidosis, flailed chest, pulmonary contusion, diaphragmatic rupture, anemia, neuromuscular, this is not meant to be an all-inclusive list. - Consultations Consultation #1: Spoke with Dr. Laguna who agrees to admit this patient Medical Decision Making - Medical Decision Making 88 male to the ER for evaluation patient will admit for significant pleural ef fusions edema and CHF - Lab Data Result diagrams: 04/04/24 04:32 04/04/24 04:32 Lab Results 03/30/24 03/30/24 03/30/24 Range/Units 21:07 21:07 21:07 WBC 7.0 (3.8-10.6) k/uL RBC 4.11 L (4.30-5.90) m/uL Hgb 11.8 L (13.0-17.5) gm/dL Hct 38.2 L (39.0-53.0) % MCV 92.9 (80.0-100.0) fL MCH 28.7 (25.0-35.0) pg MCHC 30.9 L (31.0-37.0) g/dL RDW 15.3 (11.5-15.5) % Plt Count 125 L (150-450) k/uL MPV 8.8 Neutrophils % 68 % Lymphocytes % 15 % Monocytes % 11 % Eosinophils % 4 % Basophils % 1 % Neutrophils # 4.7 (1.3-7.7) k/uL Lymphocytes # 1.0 (1.0-4.8) k/uL Monocytes # 0.8 (0-1.0) k/uL Eosinophils # 0.3 (0-0.7) k/uL Basophils # 0.0 (0-0.2) k/uL Hypochromasia Slight PT 13.1 H (10.0-12.5) sec INR 1.2 H (<1.2) APTT 30.6 H (22.0-30.0) sec Sodium 139 (137-145) mmol/L Potassium 3.5 (3.5-5.1) mmol/L Chloride 109 H (98-107) mmol/L Carbon Dioxide 28 (22-30) mmol/L Anion Gap 2 mmol/L BUN 16 (9-20) mg/dL Creatinine 0.86 (0.66-1.25) mg/dL Est GFR (CKD-EPI)AfAm 90 (>60 ml/min/1.73 sqM) Est GFR (CKD-EPI)NonAf 78 (>60 ml/min/1.73 sqM) Glucose 116 H (74-99) mg/dL Plasma Lactic Acid Michele (0.7-2.0) mmol/L Calcium 7.3 L (8.4-10.2) mg/dL Phosphorus 3.4 (2.5-4.5) mg/dL Magnesium 2.1 (1.6-2.3) mg/dL Total Bilirubin 0.9 (0.2-1.3) mg/dL AST 41 (17-59) U/L ALT 26 (4-49) U/L Alkaline Phosphatase 34 L (38-126) U/L Troponin I (0.000-0.034) ng/mL NT-Pro-B Natriuret Pep pg/mL Total Protein 5.1 L (6.3-8.2) g/dL Albumin 2.8 L (3.5-5.0) g/dL 03/30/24 03/30/24 03/30/24 Range/Units 21:07 21:07 21:07 WBC (3.8-10.6) k/uL RBC (4.30-5.90) m/uL Hgb (13.0-17.5) gm/dL Hct (39.0-53.0) % MCV (80.0-100.0) fL MCH (25.0-35.0) pg MCHC (31.0-37.0) g/dL RDW (11.5-15.5) % Plt Count (150-450) k/uL MPV Neutrophils % % Lymphocytes % % Monocytes % % Eosinophils % % Basophils % % Neutrophils # (1.3-7.7) k/uL Lymphocytes # (1.0-4.8) k/uL Monocytes # (0-1.0) k/uL Eosinophils # (0-0.7) k/uL Basophils # (0-0.2) k/uL Hypochromasia PT (10.0-12.5) sec INR (<1.2) APTT (22.0-30.0) sec Sodium (137-145) mmol/L Potassium (3.5-5.1) mmol/L Chloride (98-107) mmol/L Carbon Dioxide (22-30) mmol/L Anion Gap mmol/L BUN (9-20) mg/dL Creatinine (0.66-1.25) mg/dL Est GFR (CKD-EPI)AfAm (>60 ml/min/1.73 sqM) Est GFR (CKD-EPI)NonAf (>60 ml/min/1.73 sqM) Glucose (74-99) mg/dL Plasma Lactic Acid Michele 1.0 (0.7-2.0) mmol/L Calcium (8.4-10.2) mg/dL Phosphorus (2.5-4.5) mg/dL Magnesium (1.6-2.3) mg/dL Total Bilirubin (0.2-1.3) mg/dL AST (17-59) U/L ALT (4-49) U/L Alkaline Phosphatase (38-126) U/L Troponin I 0.017 (0.000-0.034) ng/mL NT-Pro-B Natriuret Pep 2220 pg/mL Total Protein (6.3-8.2) g/dL Albumin (3.5-5.0) g/dL - EKG Data -: EKG Interpreted by Me (EKG is A-fib 82 QRS 84 QTc 438) - Radiology Data Radiology results: report reviewed (Chest x-ray significant pulmonary edema CHF and pleural effusions), image reviewed Disposition Clinical Impression: CHF (congestive heart failure), Pleural effusion Disposition: HOME SELF-CARE Condition: Good Is patient prescribed a controlled substance at d/c from ED?: No Time of Disposition: 22:30
--- NOTE | 2024-03-30 22:10 | XR ---
EXAMINATION TYPE: XR chest 2V DATE OF EXAM: 03/30/2024 COMPARISON: Chest x-ray March 20, 2021 HISTORY: Shortness of breath TECHNIQUE: Frontal and lateral views of the chest are obtained. FINDINGS: There is small to moderate size left and moderate to large size right pleural effusions. There is central vascular congestion and bibasilar opacities favoring compressive atelectasis The car diac silhouette size is upper limits of normal. The osseous structures are intact. IMPRESSION: New central vascular congestion with moderate to large size right and small to moderate size left pleural effusions. Correlate for fluid overload state.
[2024-03-30] MEDS ORDERED: NALOXONE 0.4 MG/ML 1 ML VIAL IV PRN (22:28)
[2024-03-30] MEDS ORDERED: MORPHINE SULFATE 4 MG/ML SYRINGE IV PRN (22:28)
[2024-03-30] MEDS ORDERED: ONDANSETRON 4 MG/2 ML VIAL IVP PRN (22:28)
[2024-03-30 22:31] LABS: Magnesium 2.1 mg/dL (1.6-2.3); Phosphorus 3.4 mg/dL (2.5-4.5); Potassium 3.5 mmol/L (3.5-5.1)
[2024-03-30 22:32] LABS: AST 41 U/L (17-59); Albumin 2.8 g/dL (3.5-5.0); Alkaline Phosphatase 34 U/L (38-126); Total Protein 5.1 g/dL (6.3-8.2)
[2024-03-31] MEDS: SODIUM CHLORIDE 0.9% 1,000 ML IV SCH (00:09)
[2024-03-31 07:57] LABS: Basophils % (A) 0 %; Eosinophils # (A) 0.3 k/uL (0-0.7); Eosinophils % (A) 4 %; HGB 12.6 gm/dL (13.0-17.5); Hypochromasia Moderate; Lymphocytes # (A) 0.9 k/uL (1.0-4.8); Lymphocytes % (A) 14 %; MCH 29.1 pg (25.0-35.0); MCHC 30.7 g/dL (31.0-37.0); MCV 94.7 fL (80.0-100.0); Mean Platelet Volume 7.9; Monocytes # (A) 0.6 k/uL (0-1.0); Monocytes % (A) 10 %; Neutrophils # (A) 4.5 k/uL (1.3-7.7); Neutrophils % (A) 70 %; Platelet Count 123 k/uL (150-450); RBC 4.33 m/uL (4.30-5.90); RDW 14.9 % (11.5-15.5); WBC 6.4 k/uL (3.8-10.6)
[2024-03-31 08:26] LABS: ALT 27 U/L (4-49); AST 31 U/L (17-59); African American GFR (CKD) 87 (>60 ml/min/1.73 sqM); Albumin 3.3 g/dL (3.5-5.0); Alkaline Phosphatase 46 U/L (38-126); Anion Gap 3 mmol/L; Blood Urea Nitrogen 15 mg/dL (9-20); Calcium 8.3 mg/dL (8.4-10.2); Carbon Dioxide 32 mmol/L (22-30); Chloride 105 mmol/L (98-107); Glucose 102 mg/dL (74-99); Magnesium 2.2 mg/dL (1.6-2.3); Non-African American GFR(CKD) 75 (>60 ml/min/1.73 sqM); Potassium 3.6 mmol/L (3.5-5.1); Sodium 140 mmol/L (137-145); Total Bilirubin 0.9 mg/dL (0.2-1.3); Total Protein 5.7 g/dL (6.3-8.2)
--- NOTE | 2024-03-31 11:07 | P.CRDCN ---
History of Present Illness Consult date: 03/31/24 Chief complaint: Shortness of breath and bilateral lower extremities edema History of present illness: The patient is a pleasant 88-year-old gentleman who is somewhat poor historian with a past medical history significant for permanent atrial fibrillation has been on oral anticoagulation as well as multiple comorbid conditions including hypertension and dyslipidemia and also underlying dementia. He was seen yesterday by Dr. Laguna he was referred to the hospital. The patient describes shortness of breath with exertion appears to be somewhat progressed within the last several days but beside that he developed severe bilateral lower extre mities edema. No symptoms of chest pain or chest discomfort or dizziness or lightheadedness or any feeling of heart racing or fluttering or any presyncope or syncope. He underwent further evaluation including NT proBNP came in to be slightly elevated. The EKG showed's atrial fibrillation with diffuse nonspecific ST and T wave abnormalities. He underwent also a chest x-ray and that showed mild to moderate bilateral pleural effusion. The patient is not aware of any history of heart failure according to him. No coronary artery disease. He is known to have atrial fibrillation has been maintaining on oral anticoagulation. He underwent an echo back in 2020 and at that point the echo showed normal LV and RV systolic function with no significant valvular abnormalities and normal pulmonary artery systolic pressure. The patient was hypoxic when he was in the emergency department and currently he is requiring 2 L of oxygen to maintain his saturation above 90%. The examination is remarkable for irregular rhythm with a distant heart sounds and diminished breathing sounds bilaterally but he does have severe bilateral lower extremities pitting edema noted Assessment Heart failure with unknown etiology at this point Evidence of right and left heart failure Permanent atrial fibrillation with controlled heart rate Multiple comorbid conditions including hypertension and dyslipidemia and underlying dementia Plan Start the patient on IV Lasix at 40 mg twice daily Restart the patient back on oral anticoagulation for the atrial fibrillation Monitor his kidney function and electrolytes Obtain an echocardiogram Follow-up with the patient Past Medical History Past Medical History: Atrial Fibrillation History of Any Multi-Drug Resistant Organisms: None Reported Past Surgical History: Ablation, Hernia Repair Past Anesthesia/Blood Transfusion Reactions: No Reported Reaction Past Psychological History: No Psychological Hx Reported Smoking Status: Never smoker Past Alcohol Use History: Occasional Past Drug Use History: None Reported - Past Family History Father Family Medical History: Cancer Medications and Allergies Home Medications Medication Instructions Recorded Confirmed Type Ascorbic Acid [Vitamin C] 500 mg PO DAILY 03/20/21 03/31/24 History Cholecalciferol [Vitamin D3 (25 50 mcg PO DAILY 03/20/21 03/31/24 History Mcg = 1000 Iu)] Acetaminophen Tab [Tylenol] 650 mg PO Q6H PRN 03/31/24 03/31/24 History Apixaban [Eliquis] 5 mg PO BID@0800,1700 03/31/24 03/31/24 History Ciprofloxacin HCl [Cipro] 250 mg PO BID 03/31/24 03/31/24 History Diltiazem Cd [Cardizem CD] 120 mg PO DAILY 03/31/24 03/31/24 History Donepezil [Aricept] 10 mg PO HS 03/31/24 03/31/24 History Folic Acid 1 mg PO DAILY 03/31/24 03/31/24 History Furosemide [Lasix] 40 mg PO DAILY 03/31/24 03/31/24 History Ipratropium-Albuterol Nebulize 3 ml INHALATION RT-QID PRN 03/31/24 03/31/24 History [Duoneb 0.5 mg-3 mg/3 ml Soln] Metoprolol Tartrate [Lopressor] 25 mg PO Q8HR@0600,1400,2200 03/31/24 03/31/24 History Mv-Min/Folic/K1/Lycopen/Lutein 1 tab PO DAILY 03/31/24 03/31/24 History [Centrum Silver Men Tablet] Rosuvastatin [Crestor] 10 mg PO HS 03/31/24 03/31/24 History Spironolactone [Aldactone] 12.5 mg PO DAILY 03/31/24 03/31/24 History Tamsulosin [Flomax] 0.4 mg PO DAILY 03/31/24 03/31/24 History Allergies Allergy/AdvReac Type Severity Reaction Status Date / Time No Known Allergies Allergy Verified 03/31/24 10:51 Physical Exam Vitals: Vital Signs Temp Pulse Resp BP Pulse Ox 03/31/24 09:10 81 20 119/86 95 03/31/24 07:30 84 14 116/68 95 03/31/24 06:28 83 16 104/65 95 03/31/24 04:00 85 18 122/70 94 L 03/31/24 02:28 73 18 102/77 96 03/30/24 22:58 78 18 113/71 94 L 03/30/24 20:08 98.2 F 82 20 97/59 94 L Intake and Output 03/30/24 03/31/24 03/31/24 22:59 06:59 14:59 Other: Voiding Method Urinal Weight 81.647 kg Results 03/31/24 07:32 03/31/24 07:32 Cardiac Enzymes 03/30/24 03/30/24 03/30/24 Range/Units 21:07 21:07 23:35 AST 41 (17-59) U/L Troponin I 0.017 0.015 (0.000-0.034) ng/mL 03/31/24 03/31/24 Range/Units 07:32 07:32 AST 31 (17-59) U/L Troponin I 0.014 (0.000-0.034) ng/mL Coagulation 03/30/24 Range/Units 21:07 PT 13.1 H (10.0-12.5) sec APTT 30.6 H (22.0-30.0) sec CBC 03/30/24 03/31/24 Range/Units 21:07 07:32 WBC 7.0 6.4 (3.8-10.6) k/uL RBC 4.11 L 4.33 (4.30-5.90) m/uL Hgb 11.8 L 12.6 L (13.0-17.5) gm/dL Hct 38.2 L 41.0 (39.0-53.0) % Plt Count 125 L 123 L (150-450) k/uL Comprehensive Metabolic Panel 03/30/24 03/31/24 Range/Units 21:07 07:32 Sodium 139 140 (137-145) mmol/L Potassium 3.5 3.6 (3.5-5.1) mmol/L Chloride 109 H 105 (98-107) mmol/L Carbon Dioxide 28 32 H (22-30) mmol/L BUN 16 15 (9-20) mg/dL Creatinine 0.86 0.91 (0.66-1.25) mg/dL Glucose 116 H 102 H (74-99) mg/dL Calcium 7.3 L 8.3 L (8.4-10.2) mg/dL AST 41 31 (17-59) U/L ALT 26 27 (4-49) U/L Alkaline Phosphatase 34 L 46 (38-126) U/L Total Protein 5.1 L 5.7 L (6.3-8.2) g/dL Albumin 2.8 L 3.3 L (3.5-5.0) g/dL Current Medications Generic Name Dose Route Start Last Admin Trade Name Freq PRN Reason Stop Dose Admin Furosemide 40 mg 03/31/24 21:00 Furosemide 10 Mg/Ml 4 Ml Vial IV Q12HR BENJAMIN Sodium Chloride 1,000 mls @ 20 mls/hr 03/30/24 22:30 03/31/24 00:09 Saline 0.9% IV Not Given .Q24H BENJAMIN Morphine Sulfate 4 mg 03/30/24 22:28 Morphine Sulfate 4 Mg/Ml Syringe IV Q4HR PRN Severe Pain (Scale 7 to 10) Naloxone HCl 0.2 mg 03/30/24 22:28 Naloxone 0.4 Mg/Ml 1 Ml Vial IV Q2M PRN Opioid Reversal Ondansetron HCl 4 mg 03/30/24 22:28 Ondansetron 4 Mg/2 Ml Vial IVP Q8HR PRN Nausea And Vomiting Intake and Output 03/30/24 03/31/24 03/31/24 22:59 06:59 14:59 Other: Voiding Method Urinal Weight 81.647 kg 03/31/24 07:32 03/31/24 07:32
[2024-03-31] MEDS ORDERED: ACETAMINOPHEN TAB 325 MG TAB PO PRN (11:16)
--- NOTE | 2024-03-31 11:16 | P.HPIM ---
History of Present Illness Patient pleasant 82-year-old male came in with complaints of increased swelling was also complaining of some shortness of breath although patient did not give me any history of orthopnea paroxysmal nocturnal dyspnea. Patient had a normal echocardiogram recently patient does not take any Lasix at home but does take hydrochlorothiazide. Patient is found to have bilateral pleural effusions with elevated BNP around 2200. Patient denies any fever chills patient does not have any cough. Patient is in atrial fibrillation with diffuse ST-T wave changes patient has known A-fib and he is on anticoagulation. Patient is on 2 L of oxyg en saturating at around 90% at this time. 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 Patient does not have any valvular abnormalities does not have any pulmonary hypertension. REVIEW OF SYSTEMS: CONSTITUTIONAL: No fever, no malaise, no fatigue. HEENT: No recent visual problems or hearing problems. Denied any sore throat. CARDIOVASCULAR: No chest pain, no palpitations, no syncope. PULMONARY: no hemoptysis. GASTROINTESTINAL: No diarrhea, no nausea, no vomiting, no abdominal pain. NEUROLOGICAL: No headaches, no weakness, no numbness. HEMATOLOGICAL: Denies any bleeding or petechiae. GENITOURINARY: Denies any burning micturition, frequency, or urgency. MUSCULOSKELETAL/RHEUMATOLOGICAL: Denies any joint pain, swelling, or any muscle pain. ENDOCRINE: Denies any polyuria or polydipsia. The rest of the 14-point review of systems is negative. PHYSICAL EXAMINATION: GENERAL: The patient is alert and oriented x3, not in any acute distress. Well developed, well nourished. HEENT: Pupils are round and equally reacting to light. EOMI. No scleral icterus. No conjunctival pallor. Normocephalic, atraumatic. No pharyngeal erythema. No thyromegaly. CARDIOVASCULAR: S1 and S2 present. No murmurs, rubs, or gallops. PULMONARY: Good air entry to bilateral lung reynoso crackles bilateral lower lung bases ABDOMEN: Soft, nontender, nondistended, normoactive bowel sounds. No palpable organomegaly. MUSCULOSKELETAL: No joint swelling or deformity. EXTREMITIES: No cyanosis, clubbing, significant bilateral pedal edema NEUROLOGICAL: Gross neurological examination did not reveal any focal deficits. SKIN: No rashes. Assessment and plan -Acute hypoxic respiratory failure: Secondary to congestive heart failure unknown whether patient has diastolic or systolic dysfunction at this time repeat echocardiogram will be obtained patient is in heart failure exacerbation patient was started on IV Lasix 40 mg twice a day with close monitoring of kidney function input and output monitoring -Chronic atrial fibrillation presently rate controlled continue with home medications and anticoagulation with Eliquis -Hypokalemia potassium will be replaced -Dementia probably vascular patient is expected to have agitation episodes and sundowners will be started on as needed Seroquel for that at nighttime -Hypertension -Hyperlipidemia -Benign prostatic hypertrophy It appears patient is on Cipro although no clinical evidence of UTI at this time, this will be discontinued DVT prophylaxis: Is on Eliquis Past Medical History Past Medical History: Atrial Fibrillation History of Any Multi-Drug Resistant Organisms: None Reported Past Surgical History: Ablation, Hernia Repair Past Anesthesia/Blood Transfusion Reactions: No Reported Reaction Past Psychological History: No Psychological Hx Reported Smoking Status: Never smoker Past Alcohol Use History: Occasional Past Drug Use History: None Reported - Past Family History Father Family Medical History: Cancer Medications and Allergies Home Medications Medication Instructions Recorded Confirmed Type Ascorbic Acid [Vitamin C] 500 mg PO DAILY 03/20/21 03/31/24 History Cholecalciferol [Vitamin D3 (25 50 mcg PO DAILY 03/20/21 03/31/24 History Mcg = 1000 Iu)] Acetaminophen Tab [Tylenol] 650 mg PO Q6H PRN 03/31/24 03/31/24 History Apixaban [Eliquis] 5 mg PO BID@0800,1700 03/31/24 03/31/24 History Ciprofloxacin HCl [Cipro] 250 mg PO BID 03/31/24 03/31/24 History Diltiazem Cd [Cardizem CD] 120 mg PO DAILY 03/31/24 03/31/24 History Donepezil [Aricept] 10 mg PO HS 03/31/24 03/31/24 History Folic Acid 1 mg PO DAILY 03/31/24 03/31/24 History Furosemide [Lasix] 40 mg PO DAILY 03/31/24 03/31/24 History Ipratropium-Albuterol Nebulize 3 ml INHALATION RT-QID PRN 03/31/24 03/31/24 History [Duoneb 0.5 mg-3 mg/3 ml Soln] Metoprolol Tartrate [Lopressor] 25 mg PO Q8HR@0600,1400,2200 03/31/24 03/31/24 History Mv-Min/Folic/K1/Lycopen/Lutein 1 tab PO DAILY 03/31/24 03/31/24 History [Centrum Silver Men Tablet] Rosuvastatin [Crestor] 10 mg PO HS 03/31/24 03/31/24 History Spironolactone [Aldactone] 12.5 mg PO DAILY 03/31/24 03/31/24 History Tamsulosin [Flomax] 0.4 mg PO DAILY 03/31/24 03/31/24 History Allergies Allergy/AdvReac Type Severity Reaction Status Date / Time No Known Allergies Allergy Verified 03/31/24 10:51 Physical Exam Vitals: Vital Signs Temp Pulse Resp BP Pulse Ox 03/31/24 09:10 81 20 119/86 95 03/31/24 07:30 84 14 116/68 95 03/31/24 06:28 83 16 104/65 95 03/31/24 04:00 85 18 122/70 94 L 03/31/24 02:28 73 18 102/77 96 03/30/24 22:58 78 18 113/71 94 L 03/30/24 20:08 98.2 F 82 20 97/59 94 L Intake and Output 03/30/24 03/31/24 03/31/24 22:59 06:59 14:59 Other: Voiding Method Urinal Weight 81.647 kg Results CBC & Chem 7: 03/31/24 07:32 03/31/24 07:32 Labs: Abnormal Lab Results - Last 24 Hours (Table) 03/30/24 03/30/24 03/30/24 Range/Units 21:07 21:07 21:07 RBC 4.11 L (4.30-5.90) m/uL Hgb 11.8 L (13.0-17.5) gm/dL Hct 38.2 L (39.0-53.0) % MCHC 30.9 L (31.0-37.0) g/dL Plt Count 125 L (150-450) k/uL Lymphocytes # (1.0-4.8) k/uL PT 13.1 H (10.0-12.5) sec INR 1.2 H (<1.2) APTT 30.6 H (22.0-30.0) sec Chloride 109 H (98-107) mmol/L Carbon Dioxide (22-30) mmol/L Glucose 116 H (74-99) mg/dL Calcium 7.3 L (8.4-10.2) mg/dL Alkaline Phosphatase 34 L (38-126) U/L Total Protein 5.1 L (6.3-8.2) g/dL Albumin 2.8 L (3.5-5.0) g/dL 03/31/24 03/31/24 Range/Units 07:32 07:32 RBC (4.30-5.90) m/uL Hgb 12.6 L (13.0-17.5) gm/dL Hct (39.0-53.0) % MCHC 30.7 L (31.0-37.0) g/dL Plt Count 123 L (150-450) k/uL Lymphocytes # 0.9 L (1.0-4.8) k/uL PT (10.0-12.5) sec INR (<1.2) APTT (22.0-30.0) sec Chloride (98-107) mmol/L Carbon Dioxide 32 H (22-30) mmol/L Glucose 102 H (74-99) mg/dL Calcium 8.3 L (8.4-10.2) mg/dL Alkaline Phosphatase (38-126) U/L Total Protein 5.7 L (6.3-8.2) g/dL Albumin 3.3 L (3.5-5.0) g/dL
[2024-03-31] MEDS: TAMSULOSIN 0.4 MG CAP.ER.24H PO SCH (12:26)
[2024-03-31] MEDS: POTASSIUM CHLORIDE ER 20 MEQ TAB.ER PO STA (12:26)
[2024-03-31] MEDS: SPIRONOLACTONE 25 MG TAB PO SCH (12:26)
[2024-03-31] MEDS: METOPROLOL TARTRATE 25 MG TAB PO SCH (15:18)
[2024-03-31] MEDS: APIXABAN 5 MG TAB PO SCH (16:54)
[2024-03-31] MEDS: FUROSEMIDE 10 MG/ML 4 ML VIAL IV SCH (20:21)
[2024-03-31] MEDS: ATORVASTATIN 20 MG TAB PO SCH (20:22)
[2024-03-31] MEDS: QUEtiapine 25 MG TAB PO PRN (20:22)
[2024-04-01 09:59] LABS: Calcium 8.5 mg/dL (8.7-10.3); Carbon Dioxide 27.9 mmol/L (21.6-31.8); Chloride 105 mmol/L (96-109); Glucose 116 mg/dL (70-110); Magnesium 2.2 mg/dL (1.5-2.4); Potassium 3.9 mmol/L (3.5-5.5); Sodium 146 mmol/L (135-145)
--- NOTE | 2024-04-01 10:53 | P.PN ---
Subjective Progress Note Date: 04/01/24 The patient is a pleasant 88-year-old gentleman who is somewhat poor historian with a past medical history significant for permanent atrial fibrillation has been on oral anticoagulation as well as multiple comorbid conditions including hypertension and dyslipidemia and also underlying dementia. He was seen yesterday by Dr. Laguna he was referred to the hospital. The patient describes shortness of breath with exertion appears to be somewhat progressed within the last several days but beside that he developed severe bilateral lower extremities edema. No symptoms of chest pain or chest discomfort or dizziness or lightheadedness or any feeling of heart racing or fluttering or any presyncope or syncope. He underwent further evaluation including NT proBNP came in to be slightly elevated. The EKG showed's atrial fibrillation with diffuse nonspecific ST and T wave abnormalities. He underwent also a chest x-ray and that showed mild to moderate bilateral pleural effusion. The patient is not aware of any history of heart failure according to him. No coronary artery disease. He is known to have atrial fibrillation has been maintaining on oral anticoagulation. He underwent an echo back in 2020 and at that point the echo showed normal LV and RV systolic function with no significant valvular abnormalities and normal pulmonary artery systolic pressure. The patient was hypoxic when he was in the emergency department and currently he is requiring 2 L of oxygen to maintain his saturation above 90%. The examination is remarkable for irregular rhythm with a distant heart sounds and diminished breathing sounds bilaterally but he does have severe bilateral lower extremities pitting edema n oted April 01, 2024 The patient was seen and evaluated this morning. He continues to be in failure with severe bilateral lower extremities edema. The shortness of breath has somewhat improved. Creatinine is stable. I am going to increase the dose of Lasix to 40 mg IV 3 times daily and continue monitor the kidney function and electrolytes. The examination is remarkable for stable vital signs with irregular rhythm and controlled heart rate and severe bilateral lower extremities edema Assessment Heart failure with unknown etiology at this point Evidence of right and left heart failure Permanent atrial fibrillation with controlled heart rate Multiple comorbid conditions including hypertension and dyslipidemia and underlying dementia Plan Increase the dose of Lasix Continue monitoring the kidney function and electrolytes Obtain an echocardiogram Follow-up with the patient Objective - Vital Signs Vital signs: Vital Signs Temp 97.8 F 04/01/24 06:49 Pulse 100 04/01/24 06:49 Resp 19 04/01/24 06:49 BP 114/78 04/01/24 06:49 Pulse Ox 93 L 04/01/24 09:35 FiO2 Intake & Output 03/31/24 04/01/24 04/01/24 18:59 06:59 18:59 Intake Total 230 Output Total 775 Balance 230 -775 Weight 81.647 kg Intake: Oral 230 Output: Urine 775 Other: Voiding Method Diaper Diaper - Labs CBC & Chem 7: 03/31/24 07:32 04/01/24 04:45 Labs: Abnormal Lab Results - Last 24 Hours (Table) 04/01/24 Range/Units 04:45 Sodium 146 H (135-145) mmol/L Anion Gap 13.10 H (4.00-12.00) mmol/L Glucose 116 H (70-110) mg/dL Calcium 8.5 L (8.7-10.3) mg/dL
[2024-04-01] MEDS ORDERED: ZINC OXIDE PASTE (Z-GUARD) 1 APPLIC TOPICAL PRN (11:44)
--- NOTE | 2024-04-01 14:07 | CA ---
Transthoracic Echo Report Name: Ryan Olivier Age: 88 Gender: M : 1935 Exam Date: 03/31/2024 16:54 Exam Location: [facility] Ht (in): 69 Wt (lb): 180 Ordering Physician: Sukhjinder Edmondson MD ([id number]) Attending/Referring Phys: Consultant Internship Susanna Sheppard RDCS Procedure CPT: Indications: chf Cardiac Hx: Technical Quality: Fair Contrast 1: Total Dose (mL): Contrast 2: Total Dose (mL): MEASUREMENTS (Male / Female) Normal Values 2D ECHO LV Diastolic Diameter PLAX 3.1 cm 4.2 - 5.9 / 3.9 - 5.3 cm LV Systolic Diameter PLAX 2.3 cm IVS Diastolic Thickness 1.7 cm 0.6 - 1.0 / 0.6 - 0.9 cm LVPW Diastolic Thickness 1.8 cm 0.6 - 1.0 / 0.6 - 0.9 cm LV Relative Wall Thickness 1.1 RV Internal Dim ED PLAX 4.1 cm LVOT Diameter 2.0 cm LA Volume 83.7 cm??? 18 - 58 / 22 - 52 cm??? LA Volume Index 41.7 cm???/m??? 16 - 28 cm???/m??? M-MODE Aortic Root Diameter MM 3.3 cm LA Systolic Diameter MM 4.8 cm LA Ao Ratio MM 1.5 AV Cusp Separation MM 2.0 cm DOPPLER AV Peak Velocity 90.8 cm/s AV Peak Gradient 3.3 mmHg AV Mean Velocity 52.8 cm/s AV Mean Gradient 1.4 mmHg AV Velocity Time Integral 13.1 cm LVOT Peak Velocity 77.5 cm/s LVOT Peak Gradient 2.4 mmHg LVOT Velocity Time Integral 12.2 cm LVOT Stroke Volume 37.8 cm??? LVOT Stroke Volume Index 19.1 ml/m??? LVOT Cardiac Index 1900.4 cm???/min???m??? AV Area Cont Eq vti 2.9 cm??? AV Area Cont Eq pk 2.6 cm??? MV E' Velocity 6.7 cm/s TR Peak Velocity 258.1 cm/s TR Peak Gradient 26.7 mmHg Right Ventricular Systolic Press 30.4 mmHg FINDINGS Left Ventricle Moderately increased left ventricular wall thickness. Left ventricular cavity size normal. No obvious regional wall motion abnormalities. Left ventricular ejection fraction is estimated at 45-50 %. Could not determine diastolic function due to A-fib. Right Ventricle Moderate right ventricular dilatation. Right ventricular systolic pressure within normal limits. Right Atrium Severe right atrial dilatation. Left Atrium Severely increased left atrial volume. Mildly increased left atrial area. Mitral Valve Structurally normal mitral valve. Mitral valve thickened. Severe mitral annular calcification. Ifynicyb-[id number] mitral regurgitation. Aortic Valve Trileaflet aortic valve. No aortic stenosis. Trace aortic regurgitation. Aortic valve sclerosis. Tricuspid Valve Structurally normal tricuspid valve. [id number] tricuspid regurgitation. Pulmonic Valve Structurally normal pulmonic valve. Trace pulmonic regurgitation. Pericardium No pericardial effusion. Pleural effusion. Aorta Normal size aortic root and proximal ascending aorta. CONCLUSIONS Mildly impaired LV function with EF between 45-50% Moderate to severe mitral regurgitation Previewed by: Dr. Sukhjinder Edmondson MD (Electronically Signed) Final Date: 01 April 2024 14:06
[2024-04-01] MEDS: FUROSEMIDE 10 MG/ML 4 ML VIAL IV SCH (17:26)
--- NOTE | 2024-04-01 21:41 | P.PN ---
Subjective Progress Note Date: 04/01/24 Patient pleasant 82-year-old male came in with complaints of increased swelling was also complaining of some shortness of breath although patient did not give me any history of orthopnea paroxysmal nocturnal dyspnea. Patient had a normal echocardiogram recently patient does not take any Lasix at home but does take hydrochlorothiazide. Patient is found to have bilateral pleural effusions with elevated BNP around 2200. Patient denies any fever chills patient does not have any cough. Patient is in atrial fibrillation with diffuse ST-T wave changes patient has known A-fib and he is on anticoagulation. Patient is on 2 L of oxygen saturating at around 90% at this time. 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 Patient does not have any valvular abnormalities does not have any pulmonary hypertension. 04/01/2024 Patient is evaluated in follow up today. Continues on IV lasix Q12 hour. Patient Echocardiogram comes back with impaired LV function 45-50%, moderate to severe MR. Continues on 3L of oxygen. REVIEW OF SYSTEMS: CONSTITUTIONAL: No fever, no malaise, no fatigue. HEENT: No recent visual problems or hearing problems. Denied any sore throat. CARDIOVASCULAR: No chest pain, no palpitations, no syncope. PULMONARY: no hemoptysis. GASTROINTESTINAL: No diarrhea, no nausea, no vomiting, no abdominal pain. NEUROLOGICAL: No headaches, no weakness, no numbness. The rest of the 14-point review of systems is negative. PHYSICAL EXAMINATION: GENERAL: The patient is alert and oriented x3, not in any acute distress. Well developed, well nourished. HEENT: Pupils are round and equally reacting to light. EOMI. No scleral icterus. No conjunctival pallor. Normocephalic, atraumatic. No pharyngeal erythema. No thyromegaly. CARDIOVASCULAR: S1 and S2 present. No murmurs, rubs, or gallops. PULMONARY: Good air entry to bilateral lung reynoso crackles bilateral lower lung bases ABDOMEN: Soft, nontender, nondistended, normoactive bowel sounds. No palpable organomegaly. MUSCULOSKELETAL: No joint swelling or deformity. EXTREMITIES: No cyanosis, clubbing, significant bilateral pedal edema NEUROLOGICAL: Gross neurological examination did not reveal any focal deficits. SKIN: No rashes. Assessment and plan -Acute systolic dysfunction on IV lasix 40 mg Q12h and cardiology has increased lasix to q8h. monitor renal function and repeat labs in the AM. -Acute hypoxic respiratory failure on 3L of oxygen, secondary to CHF exacerbation -Chronic atrial fibrillation presently rate controlled continue with home medications and anticoagulation with Eliquis -Hypokalemia potassium will be replaced -Dementia probably vascular patient is expected to have agitation episodes and owners will be started on as needed Seroquel for that at nighttime -Hypertension -Hyperlipidemia -Benign prostatic hypertrophy It appears patient is on Cipro although no clinical evidence of UTI at this time, this will be discontinued DVT prophylaxis: Is on Eliquis The impression and plan of care has been dictated by Yara Blanca Nurse Practitioner as directed. Dr. Whitley MD I have performed a history and physical examination and medical decision making of this patient, discussed the same with the dictator, and agree with the dictators assessment and plan as written, documented as a scribe. Based on total visit time, I have performed more than 50% of this visit. Objective - Vital Signs Vital signs: Vital Signs Temp 97.9 F 04/01/24 17:33 Pulse 85 04/01/24 17:33 Resp 19 04/01/24 17:33 BP 108/73 04/01/24 17:33 Pulse Ox 95 04/01/24 17:33 FiO2 Intake & Output 04/01/24 04/01/24 04/02/24 06:59 18:59 06:59 Output Total 775 1000 Balance -775 -1000 Weight 81.647 kg Output: Urine 775 1000 Other: Voiding Method Diaper External Catheter - Labs CBC & Chem 7: 03/31/24 07:32 04/01/24 04:45 Labs: Abnormal Lab Results - Last 24 Hours (Table) 04/01/24 Range/Units 04:45 Sodium 146 H (135-145) mmol/L Anion Gap 13.10 H (4.00-12.00) mmol/L Glucose 116 H (70-110) mg/dL Calcium 8.5 L (8.7-10.3) mg/dL Assessment and Plan Time with Patient: Less than 30
--- NOTE | 2024-04-02 08:27 | XR ---
EXAMINATION TYPE: XR chest 1V portable DATE OF EXAM: 04/02/2024 HISTORY: Shortness of breath. COMPARISON: 03/30/2024 TECHNIQUE: Single view of the chest is submitted. FINDINGS: Demonstrated are scattered senescent parenchymal change. Bilateral pleural effusions right greater than left persist. Continued pulmonary venous congestion. The heart is stable. Hilar and mediastinal structures are within normal limits. Degenerative changes are seen of the dorsal spine. IMPRESSION: 1. Bilateral pleural effusions right greater than left persist. Continued pulmonary venous congestio n.
--- NOTE | 2024-04-02 08:30 | P.PN ---
Subjective Progress Note Date: 04/02/24 HISTORY OF PRESENT ILLNESS: 83-year-old office patient with history of A-fib, hypertension, recurrent UTI, advanced dementia, mild CHF, BPH, hyperlipidemia and other lives in [facility] after 3 hospitalization [id number] to [facility] for CHF with worsening symptoms require O2 and become quite debilitated to have another UTI with severe encephalopathy related to it. Patient ended up going to [facility] and has been on the semiassisted living. Found by family on Tuesday to have severe dyspnea, shortness of breath, with severe fluid retention. Was instructed to bring him to the emergency department at [facility] where was seen and evaluated found to have large pleural effusion bilaterally BNP was 2200 only patient was having significant dyspnea and shortness of breath he was in A- fib with diffuse STT wave change on 2 L of O2 pulse ox was only 90 percentile has an advanced dementia as a mention. Was diagnosed with acute hypoxic respiratory failure secondary to congestive heart failure most likely systolic on diastolic dysfunction also chronic A-fib with rapid ventricular response and significant electrolyte imbalance along with pleural effusion secondary to fluid overload from his CHF. REVIEW OF SYSTEMS: CONSTITUTIONAL: Well-developed quite bit confused in mild respiratory distress. EARS, NOSE, MOUTH, THROAT, and FACE: No sore throat, lymphadenopathy, carotid bruits or deformity. RESPIRATORY: Positive shortness of breath cough or wheezes. CARDIOVASCULAR: Positive PND orthopnea palpitation and fluid overload with no angina. GASTROINTESTINAL: No Abd pain, Nausea or vomiting, no Diarrhea or constipation, No GI Bleed, no distention or masses. GENITOURINARY: Negative for Hematuria or UTI, no kidney stones. INTEGUMENT/BREAST: Anasarca and edema. HEMATOLOGIC/LYMPHATIC: Negative for bleed or purpura. MUSCULOSKELTAL: Negative for Myalgia or arthralgia. NEURLOGICAL: No LOC, Sz or syncope, blurred vision dizziness or abnormality.. Advanced dementia. BEHAVIORAL/PSYCH: Positive dementia. ENDOCRINE: Negative. PHYSICAL EXAMINATION: General Appearance: Alert, cooperative, quite bit confused in mild distress. Neck HEENT: Supple, no lymphadenopathy, no thyroid enlargement, no carotid bruits. Lungs: Decreased breath sound bilaterally with fine rhonchi positive mild crackles in the bases. Chest Wall: Decreased expansion with deep inspiration no tenderness and no deformity was found on exam, no costochondral pain or discomfort. Heart: Irregular rate and rhythm, S1, S2 positive S3 +5 cm JVD. Back: Symmetric, no curvature, ROM normal, no CVA tenderness. Abdomen: Soft, non-tender, bowel sounds active all four quadrants, no masses, no organomegaly. 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 Pulses: 2+ and symmetric. Skin: Skin color, texture, tugor normal, no rashes or lesions. Neurologic: Alert confused, cranial nerves II through XII intact, positive generalized weakness with abnormal balance and gait. ASSESSMENT AND PLAN: _Congestive heart failure: Continue IV Lasix at 40 mg twice a day continue to watch his urine output and daily weight. Metoprolol and spironolactone as well and is able to tolerate smaller dose of ARB will be beneficial. _A-fib with RVR: Still on Eliquis 5 mg twice a day, metoprolol 25 mg 3 times a day with pulse rate slightly bit down. Patient was on diltiazem CD1 120 mg as an outpatient. _Anasarca: Combination of congestive heart failure most likely mixed systolic and diastolic, will continue Lasix 40 mg IV every 8 along with spironolactone for now. _Hyperlipidemia: Continue atorvastatin 20 mg a day. _Hypertension: Has been doing well on metoprolol and Cardizem will introduce smaller dose of ARB specially the kidney function will allow. _Recurrent urinary tract infection with UA was positive recently was on Cipro 250 mg twice a day apparently has finished a dose UA and culture will be done. _Worsening dementia: Was on donepezil 10 mg at bedtime has been held resume medication still on Seroquel as well. _Urinary retention: Will continue Flomax 0.4 mg daily. _Mild reactive airway/asthma: Has been on DuoNeb and O2 continue both medication. CODE STATUS: Full code. Discussion: Patient was hospitalized on Tuesday late continue on diuretics had significant pleural effusion and fluid overload with anasarca continue to be treated manage at this point we will stabilize patient hopefully in the next 24 hours and prepare for sending him back to [facility] with help. Objective - Vital Signs Vital signs: Vital Signs Temp 97.5 F L 04/02/24 01:33 Pulse 97 04/02/24 01:33 Resp 18 04/02/24 01:33 BP 112/69 04/02/24 01:33 Pulse Ox 97 04/02/24 01:33 FiO2 Intake & Output 04/01/24 04/01/24 04/02/24 06:59 18:59 06:59 Output Total 775 1000 Balance -775 -1000 Weight 81.647 kg Output: Urine 775 1000 Other: Voiding Method Diaper External Catheter External Catheter - Labs CBC & Chem 7: 03/31/24 07:32 04/01/24 04:45 Labs: Abnormal Lab Results - Last 24 Hours (Table) 04/01/24 Range/Units 04:45 Sodium 146 H (135-145) mmol/L Anion Gap 13.10 H (4.00-12.00) mmol/L Glucose 116 H (70-110) mg/dL Calcium 8.5 L (8.7-10.3) mg/dL
[2024-04-02] MEDS ORDERED: DILTIAZEM CD 120 MG CAP.ER.24H PO SCH (09:00)
[2024-04-02] MEDS: FOLIC ACID 1 MG TAB PO SCH (09:03)
[2024-04-02] MEDS: ASCORBIC ACID 500 MG TAB PO SCH (09:03)
[2024-04-02] MEDS: CHOLECALCIFEROL 25 MCG (1000 IU) TABLET PO SCH (09:03)
[2024-04-02] MEDS: MULTIVITAMINS, THERA 1 EACH TAB PO SCH (09:03)
[2024-04-02] MEDS: FUROSEMIDE 10 MG/ML 4 ML VIAL IV SCH (09:07)
[2024-04-02 09:12] LABS: BUN/Creat Ratio 11.22 Ratio (12.00-20.00); Blood Urea Nitrogen 10.1 mg/dL (9.0-27.0); Calcium 8.3 mg/dL (8.7-10.3); Carbon Dioxide 31.5 mmol/L (21.6-31.8); Chloride 100 mmol/L (96-109); Glucose 119 mg/dL (70-110); Potassium 3.6 mmol/L (3.5-5.5); Sodium 143 mmol/L (135-145)
[2024-04-02] MEDS: METOPROLOL TARTRATE 50 MG TAB PO SCH (09:21)
--- NOTE | 2024-04-02 11:05 | P.PN ---
Subjective Progress Note Date: 04/02/24 The patient is a pleasant 88-year-old gentleman who is somewhat poor historian with a past medical history significant for permanent atrial fibrillation has been on oral anticoagulation as well as multiple comorbid conditions including hypertension and dyslipidemia and also underlying dementia. He was seen yesterday by Dr. Laguna he was referred to the hospital. The patient describes shortness of breath with exertion appears to be somewhat progressed within the last several days but beside that he developed severe bilateral lower extremities edema. No symptoms of chest pain or chest discomfort or dizziness or lightheadedness or any feeling of heart racing or fluttering or any presyncope or syncope. He underwent further evaluation including NT proBNP came in to be slightly elevated. The EKG showed's atrial fibrillation with diffuse nonspecific ST and T wave abnormalities. He underwent also a chest x-ray and that showed mild to moderate bilateral pleural effusion. The patient is not aware of any history of heart failure according to him. No coronary artery disease. He is known to have atrial fibrillation has been maintaining on oral anticoagulation. He underwent an echo back in 2020 and at that point the echo showed normal LV and RV systolic function with no significant valvular abnormalities and normal pulmonary artery systolic pressure. The patient was hypoxic when he was in the emergency department and currently he is requiring 2 L of oxygen to maintain his saturation above 90%. The examination is remarkable for irregular rhythm with a distant heart sounds and diminished breathing sounds bilaterally but he does have severe bilateral lower extremities pitting edema n oted April 01, 2024 The patient was seen and evaluated this morning. He continues to be in failure with severe bilateral lower extremities edema. The shortness of breath has somewhat improved. Creatinine is stable. I am going to increase the dose of Lasix to 40 mg IV 3 times daily and continue monitor the kidney function and electrolytes. The examination is remarkable for stable vital signs with irregular rhythm and controlled heart rate and severe bilateral lower extremities edema 04/02 Patient is seen today in follow-up. Blood pressure 96/64, heart rate in the 80s and 90s, pulse ox 97% on 3 L nasal cannula. Patient has been maintained on Lasix 40 mg IV every 8 hours. Patient has a negative fluid balance. Repeat blood work reveals potassium 3.6, BUN 10 and creatinine 0.9. proBNP 4932. Patient remains in atrial fibrillation. Chest x-ray reveals bilateral pleural effusions right greater than left persist. Continued pulmonary venous congestion. Echocardiogram reveals EF of 45 to 50%, moderate to severe mitral regurgitation. Physical Examination Gen: This is an 88-year-old male in no acute distress LUNGS: Diminished breath sounds. No intercostal retractions. HEART: Regular rate and rhythm. No murmur. ABDOMEN: Soft. No masses. No tenderness. EXTREMITIES: 3+ Lower extremity edema bilaterally. NEUROLOGICAL: Patient is awake, mildly confused. Assessment Heart failure with unknown etiology at this point Evidence of right and left heart failure Acute diastolic heart failure Permanent atrial fibrillation with controlled heart rate Multiple comorbid conditions including hypertension and dyslipidemia and underlying dementia Plan Decrease IV Lasix to 40 mg every 12 hours Monitor AME, daily weights, electrolytes and renal function Increase Lopressor to 100 mg twice daily and discontinue Cardizem due to mild cardiomyopathy Continue monitoring the kidney function and electrolytes Continue other cardiac medications: Eliquis, atorvastatin, Aldactone Follow-up with the patient Nurse practitioner note has been reviewed, I agree with documented findings and plan of care. Patient was seen and examined. Objective - Vital Signs Vital signs: Vital Signs Temp 97.5 F L 04/02/24 01:33 Pulse 97 04/02/24 01:33 Resp 18 04/02/24 01:33 BP 112/69 04/02/24 01:33 Pulse Ox 97 04/02/24 01:33 FiO2 Intake & Output 04/01/24 04/02/24 04/02/24 18:59 06:59 18:59 Output Total 1000 1300 Balance -1000 -1300 Output: Urine 1000 1300 Other: Voiding Method External Catheter External Catheter - Labs CBC & Chem 7: 03/31/24 07:32 04/02/24 05:01 Labs: Abnormal Lab Results - Last 24 Hours (Table) 04/01/24 Range/Units 04:45 Sodium 146 H (135-145) mmol/L Anion Gap 13.10 H (4.00-12.00) mmol/L Glucose 116 H (70-110) mg/dL Calcium 8.5 L (8.7-10.3) mg/dL
[2024-04-02] MEDS: DONEPEZIL 10 MG TAB PO SCH (20:37)
[2024-04-03 05:35] LABS: ALT 29 U/L (4-49); AST 36 U/L (17-59); African American GFR (CKD) >90 (>60 ml/min/1.73 sqM); Albumin 3.4 g/dL (3.5-5.0); Albumin/Globulin Ratio 1.4; Alkaline Phosphatase 43 U/L (38-126); Anion Gap 9 mmol/L; Blood Urea Nitrogen 14 mg/dL (9-20); Calcium 8.3 mg/dL (8.4-10.2); Carbon Dioxide 30 mmol/L (22-30); Chloride 100 mmol/L (98-107); Globulin 2.5 g/dL; Glucose 96 mg/dL (74-99); Non-African American GFR(CKD) 81 (>60 ml/min/1.73 sqM); Potassium 3.5 mmol/L (3.5-5.1); Sodium 139 mmol/L (137-145); Total Bilirubin 1.2 mg/dL (0.2-1.3); Total Protein 5.9 g/dL (6.3-8.2)
[2024-04-03 06:06] LABS: HCT 43.8 % (39.0-53.0); HGB 14.5 gm/dL (13.0-17.5); Hypochromasia Slight; MCH 30.4 pg (25.0-35.0); MCHC 33.2 g/dL (31.0-37.0); MCV 91.7 fL (80.0-100.0); Mean Platelet Volume 9.3; RBC 4.78 m/uL (4.30-5.90); RDW 15.2 % (11.5-15.5); WBC 9.6 k/uL (3.8-10.6)
--- NOTE | 2024-04-03 07:31 | P.PN ---
Subjective Progress Note Date: 04/03/24 HISTORY OF PRESENT ILLNESS: 83-year-old office patient with history of A-fib, hypertension, recurrent UTI, advanced dementia, mild CHF, BPH, hyperlipidemia and other lives in [facility] after 3 hospitalization [id number] to [facility] for CHF with worsening symptoms require O2 and become quite debilitated to have another UTI with severe encephalopathy related to it. Patient ended up going to [facility] and has been on the semiassisted living. Found by family on Tuesday to have severe dyspnea, shortness of breath, with severe fluid retention. Was instructed to bring him to the emergency department at [facility] where was seen and evaluated found to have large pleural effusion bilaterally BNP was 2200 only patient was having significant dyspnea and shortness of breath he was in A- fib with diffuse STT wave change on 2 L of O2 pulse ox was only 90 percentile has an advanced dementia as a mention. Was diagnosed with acute hypoxic respiratory failure secondary to congestive heart failure most likely systolic on diastolic dysfunction also chronic A-fib with rapid ventricular response and significant electrolyte imbalance along with pleural effusion secondary to fluid overload from his CHF. 04/04/2024: Patient is lying in bed still having slight shortness of breath, wearing oxygen at 2 L to keep his pulse ox above 92 percentile, reviewed chest x-ray from yesterday continue to show significant amount of right-sided pleural effusion. Echocardiogram was done earlier showed severe mitral regurgitation with severe right-sided atrial enlargement and ejection fraction of 45 percentile. Sadly his weight was not measured right it went up not down even he is losing 1000 to 2000 cc of fluid every single day as a negative balance. Will consult pulmonary for thoracentesis today which would become diagnostic and therapeutic same time to reduce the right-sided pressure and probably help with his edema as well. Patient continued to have significant confusion which is not changed we will ask to do PT OT and social worker palliative care probably to help with patient discharge planning for the next 48 hours. REVIEW OF SYSTEMS: CONSTITUTIONAL: Well-developed quite bit confused in mild respiratory distress. EARS, NOSE, MOUTH, THROAT, and FACE: No sore throat, lymphadenopathy, carotid bruits or deformity. RESPIRATORY: Positive shortness of breath cough or wheezes. CARDIOVASCULAR: Positive PND orthopnea palpitation and fluid overload with no angina. GASTROINTESTINAL: No Abd pain, Nausea or vomiting, no Diarrhea or constipation, No GI Bleed, no distention or masses. GENITOURINARY: Negative for Hematuria or UTI, no kidney stones. INTEGUMENT/BREAST: Anasarca and edema. HEMATOLOGIC/LYMPHATIC: Negative for bleed or purpura. MUSCULOSKELTAL: Negative for Myalgia or arthralgia. NEURLOGICAL: No LOC, Sz or syncope, blurred vision dizziness or abnormality.. Advanced dementia. BEHAVIORAL/PSYCH: Positive dementia. ENDOCRINE: Negative. PHYSICAL EXAMINATION: General Appearance: Alert, cooperative, quite bit confused in mild distress. Neck HEENT: Supple, no lymphadenopathy, no thyroid enlargement, no carotid bruits. Lungs: Decreased breath sound bilaterally with fine rhonchi positive mild crackles in the bases. Chest Wall: Decreased expansion with deep inspiration no tenderness and no deformity was found on exam, no costochondral pain or discomfort. Expect clinically more right-sided pleural effusion than before. Heart: Irregular rate and rhythm, S1, S2 positive S3 +5 cm JVD. With systolic murmur in the apex. Back: Symmetric, no curvature, ROM normal, no CVA tenderness. Abdomen: Soft, non-tender, bowel sounds active all four quadrants, no masses, no organomegaly. 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 Pulses: 2+ and symmetric. Skin: Skin color, texture, tugor normal, no rashes or lesions. Neurologic: Alert confused, cranial nerves II through XII intact, positive generalized weakness with abnormal balance and gait. ASSESSMENT AND PLAN: _Congestive heart failure: Continue IV Lasix at 40 mg twice a day continue to watch his urine output and daily weight. Metoprolol and spironolactone as well and is able to tolerate smaller dose of ARB will be beneficial. His blood pressure continue to be slightly below not been able to add any ARB at this point or Entresto. Also patient had significant right-sided pleural effusion which will help if we do thoracentesis. _Pleural effusion: Will order an ultrasound for marking the site and pulmonary probably to do thoracentesis if possible today. _A-fib with RVR: Still on Eliquis 5 mg twice a day, metoprolol 25 mg 3 times a day with pulse rate slightly bit down. Patient was on diltiazem CD1 120 mg as an outpatient. _Severe mitral regurgitation: Patient still seen cardiology decided medical management with patient age and comorbidities not a candidate for any intervention at this point. _Anasarca: Multifactorial including congestive heart failure, pleural effusion, valvular heart disease, and significant fluid overload with slight decrease in kidney function. Will continue IV diuretics for now and see if reducing the pressure of the right side of the heart to help Reduce edema faster. _Hyperlipidemia: Continue atorvastatin 20 mg a day. _Hypertension: Has been doing well on metoprolol and Cardizem will introduce smaller dose of ARB specially the kidney function will allow. _Recurrent urinary tract infection with UA was positive recently was on Cipro 250 mg twice a day apparently has finished a dose UA and culture will be done. _Worsening dementia: Was on donepezil 10 mg at bedtime has been held resume medication still on Seroquel as well. _Urinary retention: Will continue Flomax 0.4 mg daily. _Mild reactive airway/asthma: Has been on DuoNeb and O2 continue both medication. CODE STATUS: DO NOT RESUSCITATE Discussion: Review his echocardiogram and chest x-ray continue to show significant right-sided pleural effusion, will ask pulmonary to do thoracentesis to reduce amount of pressure and probably help to reduce his edema faster. Also cardiology has seen patient and he is being treated for congestive heart failure which she has combination of systolic and diastolic acute on chronic with valvular heart disease making his mitral regurgitation probably causing more problem with early pulmonary edema and worsening anasarca overall. Discharge expectation: Probably around Tuesday or patient might require to go to SNF before going back to his assisted living. Objective - Vital Signs Vital signs: Vital Signs Temp 97.5 F L 04/03/24 02:11 Pulse 72 04/03/24 02:11 Resp 18 04/03/24 02:11 BP 107/70 04/03/24 02:11 Pulse Ox 98 04/03/24 02:11 FiO2 Intake & Output 04/02/24 04/02/24 04/03/24 06:59 18:59 06:59 Intake Total 800 Output Total 1300 1310 1250 Balance -1300 510 -1250 Weight 95.5 kg Intake: Oral 800 Output: Urine 1300 1310 1250 Other: Voiding Method External Catheter External Catheter External Catheter - Labs CBC & Chem 7: 04/03/24 04:31 04/03/24 04:31 Labs: Abnormal Lab Results - Last 24 Hours (Table) 06/1004/02/24 04/03/24 Range/Units 05:01 05:01 04:31 BUN/Creatinine Ratio 11.22 L (12.00-20.00) Ratio Glucose 119 H (70-110) mg/dL Calcium 8.3 L 8.3 L (8.7-10.3) mg/dL NT-Pro-B Natriuret Pep 4932 H (0-450) pg/mL Total Protein 5.9 L (6.3-8.2) g/dL Albumin 3.4 L (3.5-5.0) g/dL Assessment and Plan Plan: Acute hypoxic respiratory failureAcute hypoxic currently on 2 L of oxygen by nasal cannula. Presentation is typical with CHF and bilateral pleural effusion and the patient would benefit from thoracentesis which will be diagnostic and therapeutic. CHF with mild impairment of LV function/systolic heart failure with a component of diastolic failure. The patient has bilateral pleural effusion. proBNP is elevated at the time of admission. Cardiology on the case. The patient is currently on metoprolol and Aldactone and Lasix. Bilateral pleural effusion right more than left likely secondary to CHF Chronic A-fib maintained on metoprolol 25 mg 3 times daily in addition to Cardizem 120 mg p.o. daily and long-term anticoagulation with Eliquis Moderate to severe mitral regurgitation Increased lower extremity edema secondary to above Hypertension Hyperlipidemia Recurrent UTIs Advanced dementia History of urinary retention maintained on Flomax Plan Keep anticoagulation on hold and will plan to undergo a diagnostic/therapeutic thoracentesis in the morning and will start off with the right and the amount of fluid on the right is more than the left. Continue Lasix. Continue Aldactone. Optimize CHF. Metoprolol to be continued a dose of 100 mg p.o. twice a day. Consent will be obtained and the thoracentesis to be done tomorrow.
--- NOTE | 2024-04-03 08:08 | US ---
EXAMINATION TYPE: US chest DATE OF EXAM: 04/03/2024 COMPARISON: XR 04/02/2024 CLINICAL INDICATION: Male, 88 years old with history of Pleural effusion for fluid nirmal; ?AMS TECHNIQUE: Targeted ultrasound of the posterior lower bilateral hemithoraces EXAM MEASUREMENTS: Right Pleural Effusion pocket size: 6.1 cm Right skin surface to fluid distance: 1.9 cm Left Pleural Effusion pocket size: 2.9 cm Left skin surface to fluid distance: 2.3 cm Right side marked for possible thoracentesis outside the dept. Left side marked for possible thoracentesis outside the dept. Pulmonologists are able to review the images in the patient?s EMR. IMPRESSIONS: As above
[2024-04-03 08:43] LABS: Platelet Count 112 k/uL (150-450)
--- NOTE | 2024-04-03 11:24 | P.PN ---
Subjective Progress Note Date: 04/03/24 The patient is a pleasant 88-year-old gentleman who is somewhat poor historian with a past medical history significant for permanent atrial fibrillation has been on oral anticoagulation as well as multiple comorbid conditions including hypertension and dyslipidemia and also underlying dementia. He was seen yesterday by Dr. Laguna he was referred to the hospital. The patient describes shortness of breath with exertion appears to be somewhat progressed within the last several days but beside that he developed severe bilateral lower extremities edema. No symptoms of chest pain or chest discomfort or dizziness or lightheadedness or any feeling of heart racing or fluttering or any presyncope or syncope. He underwent further evaluation including NT proBNP came in to be slightly elevated. The EKG showed's atrial fibrillation with diffuse nonspecific ST and T wave abnormalities. He underwent also a chest x-ray and that showed mild to moderate bilateral pleural effusion. The patient is not aware of any history of heart failure according to him. No coronary artery disease. He is known to have atrial fibrillation has been maintaining on oral anticoagulation. He underwent an echo back in 2020 and at that point the echo showed normal LV and RV systolic function with no significant valvular abnormalities and normal pulmonary artery systolic pressure. The patient was hypoxic when he was in the emergency department and currently he is requiring 2 L of oxygen to maintain his saturation above 90%. The examination is remarkable for irregular rhythm with a distant heart sounds and diminished breathing sounds bilaterally but he does have severe bilateral lower extremities pitting edema n oted April 01, 2024 The patient was seen and evaluated this morning. He continues to be in failure with severe bilateral lower extremities edema. The shortness of breath has somewhat improved. Creatinine is stable. I am going to increase the dose of Lasix to 40 mg IV 3 times daily and continue monitor the kidney function and electrolytes. The examination is remarkable for stable vital signs with irregular rhythm and controlled heart rate and severe bilateral lower extremities edema 04/02 Patient is seen today in follow-up. Blood pressure 96/64, heart rate in the 80s and 90s, pulse ox 97% on 3 L nasal cannula. Patient has been maintained on Lasix 40 mg IV every 8 hours. Patient has a negative fluid balance. Repeat blood work reveals potassium 3.6, BUN 10 and creatinine 0.9. proBNP 4932. Patient remains in atrial fibrillation. Chest x-ray reveals bilateral pleural effusions right greater than left persist. Continued pulmonary venous congestion. Echocardiogram reveals EF of 45 to 50%, moderate to severe mitral regurgitation. 04/03 Patient is seen today in follow-up. He states no complaints. He appears to be less short of breath. Heart rate is controlled in the 70s, atrial fibrillation. Blood pressure 102/74, pulse ox 96% on 3 L nasal cannula. He has been maintained on IV Lasix 40 mg every 12 hours continues to have lower extremity edema. He has a negative fluid balance. Repeat blood work reveals normal electrolytes, creatinine 0.78 and BUN 14. Chest ultrasound was performed this morning that reveals a right pleural effusion pocket 6.1 cm and left sided pocket of 2.9 cm. Attending has added a consult in for pulmonary medicine. Physical Examination Gen: This is an 88-year-old male in no acute distress LUNGS: Diminished breath sounds. No intercostal retractions. HEART: Regular rate and rhythm. No murmur. ABDOMEN: Soft. No masses. No tenderness. EXTREMITIES: 3+ Lower extremity edema bilaterally. NEUROLOGICAL: Patient is awake, mildly confused. Assessment Heart failure with unknown etiology at this point Evidence of right and left heart failure Acute diastolic heart failure Bilateral pleural effusions Permanent atrial fibrillation with controlled heart rate Multiple comorbid conditions including hypertension and dyslipidemia and underlying dementia Plan Decrease IV Lasix to 40 mg every 12 hours for another 24 hours Monitor AME, daily weights, electrolytes and renal function Increase Lopressor to 100 mg twice daily and discontinue Cardizem due to mild cardiomyopathy Continue monitoring the kidney function and electrolytes Continue other cardiac medications: Eliquis, atorvastatin, Aldactone Follow-up with the patient Nurse practitioner note has been reviewed, I agree with documented findings and plan of care. Patient was seen and examined. Objective - Vital Signs Vital signs: Vital Signs Temp 98.5 F 04/03/24 07:07 Pulse 91 04/03/24 08:13 Resp 16 04/03/24 07:07 BP 102/74 04/03/24 08:13 Pulse Ox 96 04/03/24 08:39 FiO2 Intake & Output 04/02/24 04/03/24 04/03/24 18:59 06:59 18:59 Intake Total 800 Output Total 1310 1250 Balance -510 -1250 Weight 95.5 kg Intake: Oral 800 Output: Urine 1310 1250 Other: Voiding Method External Catheter External Catheter - Labs CBC & Chem 7: 04/03/24 04:31 04/03/24 04:31 Labs: Abnormal Lab Results - Last 24 Hours (Table) 04/02/24 04/03/24 04/03/24 Range/Units 05:01 04:31 04:31 Plt Count 112 L (150-450) k/uL Calcium 8.3 L (8.4-10.2) mg/dL NT-Pro-B Natriuret Pep 4932 H (0-450) pg/mL Total Protein 5.9 L (6.3-8.2) g/dL Albumin 3.4 L (3.5-5.0) g/dL
[2024-04-04 05:07] LABS: HCT 43.4 % (39.0-53.0); HGB 13.9 gm/dL (13.0-17.5); Hypochromasia Slight; MCH 29.6 pg (25.0-35.0); MCHC 32.1 g/dL (31.0-37.0); MCV 92.2 fL (80.0-100.0); Mean Platelet Volume 8.5; Platelet Count 118 k/uL (150-450); RDW 15.3 % (11.5-15.5); WBC 7.8 k/uL (3.8-10.6)
[2024-04-04 05:19] LABS: ALT 26 U/L (4-49); AST 33 U/L (17-59); African American GFR (CKD) 89 (>60 ml/min/1.73 sqM); Albumin 3.2 g/dL (3.5-5.0); Albumin/Globulin Ratio 1.3; Alkaline Phosphatase 45 U/L (38-126); Anion Gap 3 mmol/L; Blood Urea Nitrogen 16 mg/dL (9-20); Calcium 8.3 mg/dL (8.4-10.2); Carbon Dioxide 39 mmol/L (22-30); Chloride 98 mmol/L (98-107); Globulin 2.4 g/dL; Glucose 101 mg/dL (74-99); Non-African American GFR(CKD) 77 (>60 ml/min/1.73 sqM); Potassium 3.2 mmol/L (3.5-5.1); Sodium 140 mmol/L (137-145); Total Bilirubin 1.2 mg/dL (0.2-1.3); Total Protein 5.6 g/dL (6.3-8.2)
[2024-04-04] MEDS: IPRATROPIUM-ALBUTEROL 3 ML NEB INHALATION PRN (08:03)
[2024-04-04] MEDS: SPIRONOLACTONE 25 MG TAB PO SCH (09:00)
[2024-04-04] MEDS: FUROSEMIDE 40 MG TAB PO SCH (09:00)
[2024-04-04 11:38] VITALS: BMI 30.2
--- NOTE | 2024-04-04 12:32 | XR ---
EXAMINATION TYPE: XR chest 1V DATE OF EXAM: 04/04/2024 HISTORY: Shortness of breath. COMPARISON: 04/02/24 TECHNIQUE: Single view of the chest is submitted. FINDINGS: Demonstrated are scattered senescent parenchymal change. Basilar pleural effusions with underlying at electasis or infiltrates not excluded. Overall appearance is improved. The heart is stable. Hilar and mediastinal structures are within normal limits. Degenerative changes are seen of the dorsal spine. IMPRESSION: 1. Basilar pleural effusions with underlying atelectasis or infiltrates not excluded. Overall appear ance is improved.
--- NOTE | 2024-04-04 13:09 | P.PN ---
Subjective Progress Note Date: 04/04/24 The patient is a pleasant 88-year-old gentleman who is somewhat poor historian with a past medical history significant for permanent atrial fibrillation has been on oral anticoagulation as well as multiple comorbid conditions including hypertension and dyslipidemia and also underlying dementia. He was seen yesterday by Dr. Laguna he was referred to the hospital. The patient describes shortness of breath with exertion appears to be somewhat progressed within the last several days but beside that he developed severe bilateral lower extremities edema. No symptoms of chest pain or chest discomfort or dizziness or lightheadedness or any feeling of heart racing or fluttering or any presyncope or syncope. He underwent further evaluation including NT proBNP came in to be slightly elevated. The EKG showed's atrial fibrillation with diffuse nonspecific ST and T wave abnormalities. He underwent also a chest x-ray and that showed mild to moderate bilateral pleural effusion. The patient is not aware of any history of heart failure according to him. No coronary artery disease. He is known to have atrial fibrillation has been maintaining on oral anticoagulation. He underwent an echo back in 2020 and at that point the echo showed normal LV and RV systolic function with no significant valvular abnormalities and normal pulmonary artery systolic pressure. The patient was hypoxic when he was in the emergency department and currently he is requiring 2 L of oxygen to maintain his saturation above 90%. The examination is remarkable for irregular rhythm with a distant heart sounds and diminished breathing sounds bilaterally but he does have severe bilateral lower extremities pitting edema n oted April 01, 2024 The patient was seen and evaluated this morning. He continues to be in failure with severe bilateral lower extremities edema. The shortness of breath has somewhat improved. Creatinine is stable. I am going to increase the dose of Lasix to 40 mg IV 3 times daily and continue monitor the kidney function and electrolytes. The examination is remarkable for stable vital signs with irregular rhythm and controlled heart rate and severe bilateral lower extremities edema 04/02 Patient is seen today in follow-up. Blood pressure 96/64, heart rate in the 80s and 90s, pulse ox 97% on 3 L nasal cannula. Patient has been maintained on Lasix 40 mg IV every 8 hours. Patient has a negative fluid balance. Repeat blood work reveals potassium 3.6, BUN 10 and creatinine 0.9. proBNP 4932. Patient remains in atrial fibrillation. Chest x-ray reveals bilateral pleural effusions right greater than left persist. Continued pulmonary venous congestion. Echocardiogram reveals EF of 45 to 50%, moderate to severe mitral regurgitation. 04/03 Patient is seen today in follow-up. He states no complaints. He appears to be less short of breath. Heart rate is controlled in the 70s, atrial fibrillation. Blood pressure 102/74, pulse ox 96% on 3 L nasal cannula. He has been maintained on IV Lasix 40 mg every 12 hours continues to have lower extremity edema. He has a negative fluid balance. Repeat blood work reveals normal electrolytes, creatinine 0.78 and BUN 14. Chest ultrasound was performed this morning that reveals a right pleural effusion pocket 6.1 cm and left sided pocket of 2.9 cm. Attending has added a consult in for pulmonary medicine. 04/04 Patient seen today in follow-up. Blood pressure readings remain on the soft side at 96/64, heart rate is in the 60s, pulse ox 97% on 4 L nasal cannula. Patient remains on IV Lasix 40 mg every 12 hours. He has a negative fluid balance. He is scheduled for thoracentesis today. Potassium 3.2, creatinine 0.88. TSH 3.75. Chest x-ray reveals basilar pleural effusions with underlying atelectasis or infiltrates not excluded. Overall appearance is improved. Physical Examination Gen: This is an 88-year-old male in no acute distress LUNGS: Diminished breath sounds. No intercostal retractions. HEART: Regular rate and rhythm. No murmur. ABDOMEN: Soft. No masses. No tenderness. EXTREMITIES: 2+ Lower extremity edema bilaterally. NEUROLOGICAL: Patient is awake, mildly confused. Assessment Heart failure with unknown etiology at this point Evidence of right and left heart failure Acute diastolic heart failure Bilateral pleural effusions Permanent atrial fibrillation with controlled heart rate Multiple comorbid conditions including hypertension and dyslipidemia and underlying dementia Plan Transition IV Lasix to oral 40 mg twice daily Monitor AME, daily weights, electrolytes and renal function Continue increased dose of Lopressor 100 mg twice daily Continue other cardiac medications: Eliquis, atorvastatin, Aldactone Follow-up with the patient Nurse practitioner note has been reviewed, I agree with documented findings and plan of care. Patient was seen and examined. Objective - Vital Signs Vital signs: Vital Signs Temp 97.6 F 04/04/24 07:28 Pulse 84 04/04/24 08:17 Resp 17 04/04/24 07:28 BP 96/64 06/12/24 07:28 Pulse Ox 97 04/04/24 08:05 FiO2 Intake & Output 04/03/24 04/04/24 04/04/24 18:59 06:59 18:59 Output Total 2200 1400 Balance -2200 -1400 Weight 93 kg Output: Urine 2200 1400 Other: Voiding Method External Catheter External Catheter # Bowel Movements 1 - Labs CBC & Chem 7: 04/04/24 04:32 04/04/24 04:32 Labs: Abnormal Lab Results - Last 24 Hours (Table) 04/03/24 04/04/24 04/04/24 Range/Units 04:31 04:32 04:32 Plt Count 112 L 118 L (150-450) k/uL Potassium 3.2 L (3.5-5.1) mmol/L Carbon Dioxide 39 H (22-30) mmol/L Glucose 101 H (74-99) mg/dL Calcium 8.3 L (8.4-10.2) mg/dL Total Protein 5.6 L (6.3-8.2) g/dL Albumin 3.2 L (3.5-5.0) g/dL
--- NOTE | 2024-04-04 15:22 | P.CNPUL ---
History of Present Illness Consult date: 04/03/24 Reason for consult: pleural effusion History of present illness: I was asked to evaluate this patient for pleural effusion. The patient is a la rge right-sided pleural effusion and a moderate-sized left-sided pleural effusion ultrasound marking was done for thoracentesis. The patient has advanced dementia. The patient lives at [facility] and has had previous hospitalization for decompensated CHF and hypoxic respiratory failure. He also has had episodes of UTI. He is known to have chronic A-fib, hypertension, BPH, hyperlipidemia and recurrent urinary tract infection along with history of CHF. The patient came into the hospital because of worsening shortness of breath. He was found to have a proBNP level of 22,000. He was found to be in atrial fibrillation. He was placed on oxygen and currently is on 2 L of oxygen by nasal cannula. He was diagnosed having an acute on top of chronic systolic/diastolic heart failure. He was started on diuretics and the patient is currently on Lasix 40 mg IV every 12 hours. The patient is producing adequate amount of urine output. Fluid balance over the past 24 hours has been -2.3 L and the patient seems to be quite comfortable. The chest x-ray shows bilateral pleural effusion as mentioned. Echocardiogram was done on 03/31/2024 and the patient was found to have an ejection fraction of 45 to 50%. There is moderate to severe mitral regurgitation and the pulmonary artery pressure estimated to be around 30 mmHg. Sodium levels at 139, BUN is 14 with a creatinine of 0.7, white cell count 9.6 with a hemoglobin 14.5 and a platelet count of 112. The patient is resting comfortably in bed. The patient is also on anticoagulation with Eliquis that was held this morning. Review of Systems CONSTITUTIONAL: No fever, no malaise, no fatigue. HEENT: No recent visual problems or hearing problems. Denied any sore throat. CARDIOVASCULAR: No chest pain, no palpitations, no syncope. PULMONARY: no hemoptysis., Shortness of breath as discussed above and the patient has hypoxic story failure currently on 2 L of oxygen by nasal cannula GASTROINTESTINAL: No diarrhea, no nausea, no vomiting, no abdominal pain. NEUROLOGICAL: No headaches, no weakness, no numbness. HEMATOLOGICAL: Denies any bleeding or petechiae. GENITOURINARY: Denies any burning micturition, frequency, or urgency. MUSCULOSKELETAL/RHEUMATOLOGICAL: Denies any joint pain, swelling, or any muscle pain. Increased edema lower extremities bilaterally ENDOCRINE: Denies any polyuria or polydipsia. Past Medical History Past Medical History: Atrial Fibrillation History of Any Multi-Drug Resistant Organisms: None Reported Past Surgical History: Ablation, Hernia Repair Past Anesthesia/Blood Transfusion Reactions: No Reported Reaction Past Psychological History: No Psychological Hx Reported Smoking Status: Never smoker Past Alcohol Use History: Occasional Past Drug Use History: None Reported - Past Family History Father Family Medical History: Cancer Medications and Allergies Home Medications Medication Instructions Recorded Confirmed Type Ascorbic Acid [Vitamin C] 500 mg PO DAILY 03/20/21 03/31/24 History Cholecalciferol [Vitamin D3 (25 50 mcg PO DAILY 03/20/21 03/31/24 History Mcg = 1000 Iu)] Acetaminophen Tab [Tylenol] 650 mg PO Q6H PRN 03/31/24 03/31/24 History Apixaban [Eliquis] 5 mg PO BID@0800,1700 03/31/24 03/31/24 History Ciprofloxacin HCl [Cipro] 250 mg PO BID 03/31/24 03/31/24 History Diltiazem Cd [Cardizem CD] 120 mg PO DAILY 03/31/24 03/31/24 History Donepezil [Aricept] 10 mg PO HS 03/31/24 03/31/24 History Folic Acid 1 mg PO DAILY 03/31/24 03/31/24 History Furosemide [Lasix] 40 mg PO DAILY 03/31/24 03/31/24 History Ipratropium-Albuterol Nebulize 3 ml INHALATION RT-QID PRN 03/31/24 03/31/24 History [Duoneb 0.5 mg-3 mg/3 ml Soln] Metoprolol Tartrate [Lopressor] 25 mg PO Q8HR@0600,1400,2200 03/31/24 03/31/24 History Mv-Min/Folic/K1/Lycopen/Lutein 1 tab PO DAILY 03/31/24 03/31/24 History [Centrum Silver Men Tablet] Rosuvastatin [Crestor] 10 mg PO HS 03/31/24 03/31/24 History Spironolactone [Aldactone] 12.5 mg PO DAILY 03/31/24 03/31/24 History Tamsulosin [Flomax] 0.4 mg PO DAILY 03/31/24 03/31/24 History Allergies Allergy/AdvReac Type Severity Reaction Status Date / Time No Known Allergies Allergy Verified 03/31/24 10:51 Physical Exam Vitals: Vital Signs Temp Pulse Resp BP Pulse Ox 04/03/24 08:39 96 04/03/24 08:15 18 04/03/24 08:13 91 102/74 04/03/24 07:07 98.5 F 79 16 92/57 91 L 04/03/24 02:11 97.5 F L 72 18 107/70 98 04/02/24 20:16 97.9 F 83 18 118/78 95 04/02/24 15:10 97.5 F L 97 19 95/62 93 L Intake and Output 04/02/24 04/03/24 04/03/24 22:59 06:59 14:59 Intake Total 800 Output Total 910 1050 Balance -110 -1050 Intake: Oral 800 Output: Urine 910 1050 Other: Voiding Method External Catheter External Catheter Weight 95.5 kg General Appearance: Alert, cooperative, quite bit confused in mild distress. The patient is currently on 2 L of oxygen by nasal cannula. Breathing comfortably without use of accessory muscles of breathing. Neck HEENT: Supple, no lymphadenopathy, no thyroid enlargement, no carotid bruits. Lungs: Decreased breath sound bilaterally with fine rhonchi positive mild crac kles in the bases. Chest Wall: Decreased expansion with deep inspiration no tenderness and no deformity was found on exam, no costochondral pain or discomfort. The patient has dullness to percussion and the findings are consistent with bilateral pleural effusion worse on the right. Heart: Irregular rate and rhythm, S1, S2 positive S3 and a positive JVD. With systolic murmur in the apex grade 3/6 Back: Symmetric, no curvature, ROM normal, no CVA tenderness. Abdomen: Soft, non-tender, bowel sounds active all four quadrants, no masses, no organomegaly. 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 Pulses: 2+ and symmetric. Skin: Skin color, texture, tugor normal, no rashes or lesions. Neurologic: Alert confused, cranial nerves II through XII intact, positive generalized weakness with abnormal balance and gait. Results - Laboratory Findings CBC and BMP: 04/04/24 04:32 04/04/24 04:32 PT/INR, D-dimer PT 13.1 sec (10.0-12.5) H 03/30/24 21:07 INR 1.2 (<1.2) H 03/30/24 21:07 Abnormal lab findings: Abnormal Labs 03/30/24 03/30/24 03/30/24 21:07 21:07 21:07 RBC 4.11 L Hgb 11.8 L Hct 38.2 L MCHC 30.9 L Plt Count 125 L Lymphocytes # PT 13.1 H INR 1.2 H APTT 30.6 H Sodium Chloride 109 H Carbon Dioxide Anion Gap BUN/Creatinine Ratio Glucose 116 H Calcium 7.3 L Alkaline Phosphatase 34 L NT-Pro-B Natriuret Pep Total Protein 5.1 L Albumin 2.8 L 03/31/24 03/31/24 04/01/24 07:32 07:32 04:45 RBC Hgb 12.6 L Hct MCHC 30.7 L Plt Count 123 L Lymphocytes # 0.9 L PT INR APTT Sodium 146 H Chloride Carbon Dioxide 32 H Anion Gap 13.10 H BUN/Creatinine Ratio Glucose 102 H 116 H Calcium 8.3 L 8.5 L Alkaline Phosphatase NT-Pro-B Natriuret Pep Total Protein 5.7 L Albumin 3.3 L 04/02/24 04/02/24 04/03/24 05:01 05:01 04:31 RBC Hgb Hct MCHC Plt Count 112 L Lymphocytes # PT INR APTT Sodium Chloride Carbon Dioxide Anion Gap BUN/Creatinine Ratio 11.22 L Glucose 119 H Calcium 8.3 L Alkaline Phosphatase NT-Pro-B Natriuret Pep 4932 H Total Protein Albumin 04/03/24 04:31 RBC Hgb Hct MCHC Plt Count Lymphocytes # PT INR APTT Sodium Chloride Carbon Dioxide Anion Gap BUN/Creatinine Ratio Glucose Calcium 8.3 L Alkaline Phosphatase NT-Pro-B Natriuret Pep Total Protein 5.9 L Albumin 3.4 L - Diagnostic Findings Chest x-ray: image reviewed Assessment and Plan Plan: Acute hypoxic respiratory failureAcute hypoxic currently on 2 L of oxygen by nasal cannula. Presentation is typical with CHF and bilateral pleural effusion and the patient would benefit from thoracentesis which will be diagnostic and therapeutic. CHF with mild impairment of LV function/systolic heart failure with a component of diastolic failure. The patient has bilateral pleural effusion. proBNP is elevated at the time of admission. Cardiology on the case. The patient is currently on metoprolol and Aldactone and Lasix. Bilateral pleural effusion right more than left likely secondary to CHF Chronic A-fib maintained on metoprolol 25 mg 3 times daily in addition to Cardizem 120 mg p.o. daily and long-term anticoagulation with Eliquis Moderate to severe mitral regurgitation Increased lower extremity edema secondary to above Hypertension Hyperlipidemia Recurrent UTIs Advanced dementia History of urinary retention maintained on Flomax Plan Keep anticoagulation on hold and will plan to undergo a diagnostic/therapeutic thoracentesis in the morning and will start off with the right and the amount of fluid on the right is more than the left. Continue Lasix. Continue Aldactone. Optimize CHF. Metoprolol to be continued a dose of 100 mg p.o. twice a day. Consent will be obtained and the thoracentesis to be done tomorrow.
--- NOTE | 2024-04-04 15:24 | P.PCN ---
Date of Procedure: 04/04/24 Operative Findings: Preoperative Diagnosis: Pleural effusion, right Postoperative Diagnosis: Pleural effusion, right Procedure(s) Performed: Thoracentesis, right Anesthesia: local Surgeon: Malachi Rodríguez Estimated Blood Loss (ml): 3,080 Pathology: other Condition: stable Disposition: floor Operative Findings: A time out was performed and the chest x-ray was reviewed, the appropriate side was confirmed and marked. My hands were washed immediately prior to the procedure. I wore a surgical cap, mask with protective eyewear, sterile gown and sterile gloves throughout the procedure. The patient was prepped and draped in a sterile manner using chlorhexidine scrub after the appropriate level was percussed and confirmed by ultrasound. 1% lidocaine was used to anesthesize the skin, subcutaneous tissue, superior aspect of the rib periosteum and parietal pleura. A finder needle was then introduced over the superior aspect of the rib to locate the pleural fluid; 2colored fluid was aspirated at a depth of approximately 2 cm. A 10-blade scalpel was used to krystin the skin at the insertion site. The [id number] needle was then introduced through the skin incision into the pleural space using negative aspiration pressure and the red colometric indicator to confirm appropriate positioning of the needle. The thoracentesis catheter was then threaded without difficulty. 1300 ml of turbid colored fluid was removed without difficulty. The catheter was then removed. No immediate complications were noted during the procedure. A post-procedure chest x-ray is pending at the time of this note. The fluid will follow-up be sent for studies. Estimated blood loss is 0cc
--- NOTE | 2024-04-04 15:24 | P.PN ---
Subjective Progress Note Date: 04/04/24 On 04/04/2024, the patient is being seen for a follow-up. The patient is resting comfortably in bed. Bedside thoracentesis was done of the right lung and a total of 1. was aspirated without any complications. The postprocedure chest x-ray shows no complication. There is some residual right-sided pleural effusion and a small left-sided pleural effusion. Clinically stable on 2 L of oxygen by nasal cannula with a pulse ox of 95%. No respiratory difficulties. Remains on Lasix 40 mg p.o. twice a day and Aldactone 25 mg p.o. daily. Remains on metoprolol 100 mg p.o. twice a day. Blood work shows a white cell count of 7, hemoglobin 13.9 and platelet count of 118. BUN is 16 with a creatinine of 0 .8. proBNP level was 4932. Thyroid function test have been essentially within normal limits. Objective - Vital Signs Vital signs: Vital Signs Temp 97.9 F 04/04/24 14:00 Pulse 68 04/04/24 14:00 Resp 15 04/04/24 14:00 BP 100/58 04/04/24 14:00 Pulse Ox 95 04/04/24 14:00 FiO2 Intake & Output 04/03/24 04/04/24 04/04/24 18:59 06:59 18:59 Output Total 2200 1400 Balance -2200 -1400 Weight 93 kg 93 kg Output: Urine 2200 1400 Other: Voiding Method External Catheter External Catheter External Catheter # Bowel Movements 1 - Exam General Appearance: Alert, cooperative, quite bit confused in mild distress. The patient is currently on 2 L of oxygen by nasal cannula. Breathing comfortably without use of accessory muscles of breathing. Neck HEENT: Supple, no lymphadenopathy, no thyroid enlargement, no carotid bruits. Lungs: Decreased breath sound bilaterally with fine rhonchi positive mild crackles in the bases. Chest Wall: Decreased expansion with deep inspiration no tenderness and no deformity was found on exam, no costochondral pain or discomfort. The patient has dullness to percussion and the findings are consistent with bilateral pleural effusion worse on the right. Heart: Irregular rate and rhythm, S1, S2 positive S3 and a positive JVD. With systolic murmur in the apex grade 3/6 Back: Symmetric, no curvature, ROM normal, no CVA tenderness. Abdomen: Soft, non-tender, bowel sounds active all four quadrants, no masses, no organomegaly. 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 Pulses: 2+ and symmetric. Skin: Skin color, texture, tugor normal, no rashes or lesions. Neurologic: Alert confused, cranial nerves II through XII intact, positive generalized weakness with abnormal balance and gait. - Labs CBC & Chem 7: 04/04/24 04:32 04/04/24 04:32 Labs: Abnormal Lab Results - Last 24 Hours (Table) 04/04/24 04/04/24 Range/Units 04:32 04:32 Plt Count 118 L (150-450) k/uL Potassium 3.2 L (3.5-5.1) mmol/L Carbon Dioxide 39 H (22-30) mmol/L Glucose 101 H (74-99) mg/dL Calcium 8.3 L (8.4-10.2) mg/dL Total Protein 5.6 L (6.3-8.2) g/dL Albumin 3.2 L (3.5-5.0) g/dL Assessment and Plan Plan: Acute hypoxic respiratory failureAcute hypoxic currently on 2 L of oxygen by genet al cannula. Presentation is typical with CHF and bilateral pleural effusion and the patient underwent a right-sided thoracentesis with removal of 1.3 throughout pleural fluid without any complications. CHF with mild impairment of LV function/systolic heart failure with a component of diastolic failure. The patient has bilateral pleural effusion. proBNP is elevated at the time of admission. Cardiology on the case. The patient is currently on metoprolol and Aldactone and Lasix. Bilateral pleural effusion right more than left likely secondary to CHF, the patient is post thoracentesis the right lung Chronic A-fib maintained on metoprolol 25 mg 3 times daily in addition to Cardizem 120 mg p.o. daily and long-term anticoagulation with Eliquis Moderate to severe mitral regurgitation Increased lower extremity edema secondary to above Hypertension Hyperlipidemia Recurrent UTIs Advanced dementia History of urinary retention maintained on Flomax Plan Keep anticoagulation on hold Repeat chest x-ray in the morning May consider doing a thoracentesis of the left lung Will evaluate the patient's pleural fluid chemistry, culture and cytology Continue Lasix. Continue Aldactone. Optimize CHF. Metoprolol to be continued a dose of 100 mg p.o. twice a day. Will continue to follow.
[2024-04-04 18:37] LABS: Appearance,BF Clear (Clear)
[2024-04-04 19:50] LABS: Cholesterol,BF Source Pleural Fluid; Cholesterol,Body Fluid 21 mg/dL; Glucose, BF Source Pleural Fluid; Glucose, Body Fluid 132 mg/dL; LDH, Body Fluid Source Pleural Fluid; T. Protein, Body Fluid Source Pleural Fluid; Total Protein, Body Fluid 2230 mg/dL
[2024-04-04] MEDS: POTASSIUM CHLORIDE ER 20 MEQ TAB.ER PO SCH (22:22)
--- NOTE | 2024-04-04 22:39 | P.PN ---
Subjective Progress Note Date: 04/04/24 HISTORY OF PRESENT ILLNESS: 83-year-old office patient with history of A-fib, hypertension, recurrent UTI, advanced dementia, mild CHF, BPH, hyperlipidemia and other lives in [facility] after 3 hospitalization [id number] to [facility] for CHF with worsening symptoms require O2 and become quite debilitated to have another UTI with severe encephalopathy related to it. Patient ended up going to [facility] and has been on the semiassisted living. Found by family on Tuesday to have severe dyspnea, shortness of breath, with severe fluid retention. Was instructed to bring him to the emergency department at [facility] where was seen and evaluated found to have large pleural effusion bilaterally BNP was 2200 only patient was having significant dyspnea and shortness of breath he was in A- fib with diffuse STT wave change on 2 L of O2 pulse ox was only 90 percentile has an advanced dementia as a mention. Was diagnosed with acute hypoxic respiratory failure secondary to congestive heart failure most likely systolic on diastolic dysfunction also chronic A-fib with rapid ventricular response and significant electrolyte imbalance along with pleural effusion secondary to fluid overload from his CHF. 04/04/2024: Patient is lying in bed still having slight shortness of breath, wearing oxygen at 2 L to keep his pulse ox above 92 percentile, reviewed chest x-ray from yesterday continue to show significant amount of right-sided pleural effusion. Echocardiogram was done earlier showed severe mitral regurgitation with severe right-sided atrial enlargement and ejection fraction of 45 percentile. Sadly his weight was not measured right it went up not down even he is losing 1000 to 2000 cc of fluid every single day as a negative balance. Will consult pulmonary for thoracentesis today which would become diagnostic and therapeutic same time to reduce the right-sided pressure and probably help with his edema as well. Patient continued to have significant confusion which is not changed we will ask to do PT OT and social media sr strategy manager probably to help with patient discharge planning for the next 48 hours. REVIEW OF SYSTEMS: CONSTITUTIONAL: Well-developed quite bit confused in mild respiratory distress. EARS, NOSE, MOUTH, THROAT, and FACE: No sore throat, lymphadenopathy, carotid bruits or deformity. RESPIRATORY: Positive shortness of breath cough or wheezes. CARDIOVASCULAR: Positive PND orthopnea palpitation and fluid overload with no angina. GASTROINTESTINAL: No Abd pain, Nausea or vomiting, no Diarrhea or constipation, No GI Bleed, no distention or masses. GENITOURINARY: Negative for Hematuria or UTI, no kidney stones. INTEGUMENT/BREAST: Anasarca and edema. HEMATOLOGIC/LYMPHATIC: Negative for bleed or purpura. MUSCULOSKELTAL: Negative for Myalgia or arthralgia. NEURLOGICAL: No LOC, Sz or syncope, blurred vision dizziness or abnormality.. Advanced dementia. BEHAVIORAL/PSYCH: Positive dementia. ENDOCRINE: Negative. PHYSICAL EXAMINATION: General Appearance: Alert, cooperative, quite bit confused in mild distress. Neck HEENT: Supple, no lymphadenopathy, no thyroid enlargement, no carotid bruits. Lungs: Decreased breath sound bilaterally with fine rhonchi positive mild crackles in the bases. Chest Wall: Decreased expansion with deep inspiration no tenderness and no deformity was found on exam, no costochondral pain or discomfort. Expect clinically more right-sided pleural effusion than before. Heart: Irregular rate and rhythm, S1, S2 positive S3 +5 cm JVD. With systolic murmur in the apex. Back: Symmetric, no curvature, ROM normal, no CVA tenderness. Abdomen: Soft, non-tender, bowel sounds active all four quadrants, no masses, no organomegaly. 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 Pulses: 2+ and symmetric. Skin: Skin color, texture, tugor normal, no rashes or lesions. Neurologic: Alert confused, cranial nerves II through XII intact, positive generalized weakness with abnormal balance and gait. ASSESSMENT AND PLAN: _Congestive heart failure: Continue IV Lasix at 40 mg twice a day continue to watch his urine output and daily weight. Metoprolol and spironolactone as well and is able to tolerate smaller dose of ARB will be beneficial. His blood pressure continue to be slightly below not been able to add any ARB at this point or Entresto. Also patient had significant right-sided pleural effusion which will help if we do thoracentesis. _Pleural effusion: Will order an ultrasound for marking the site and pulmonary will be doing thoracentesis. _A-fib with RVR: Still on Eliquis 5 mg twice a day, metoprolol 25 mg 3 times a day with pulse rate slightly bit down. Patient was on diltiazem CD1 120 mg as an outpatient. Will continue anticoagulation. _Severe mitral regurgitation: Patient still seen cardiology decided medical management with patient age and comorbidities not a candidate for any intervention at this point. _Anasarca: Multifactorial including congestive heart failure, pleural effusion, valvular heart disease, and significant fluid overload with slight decrease in kidney function. Will continue IV diuretics for now and see if reducing the pressure of the right side of the heart to help Reduce edema faster. _Hyperlipidemia: Continue atorvastatin 20 mg a day. _Hypertension: Has been doing well on metoprolol and Cardizem will introduce smaller dose of ARB specially the kidney function will allow. _Recurrent urinary tract infection with UA was positive recently was on Cipro 250 mg twice a day apparently has finished a dose UA and culture will be done. _Worsening dementia: Was on donepezil 10 mg at bedtime has been held resume medication still on Seroquel as well. _Urinary retention: Will continue Flomax 0.4 mg daily. _Mild reactive airway/asthma: Has been on DuoNeb and O2 continue both medication. CODE STATUS: DO NOT RESUSCITATE Discussion: Thoracentesis will be done hopefully patient shortness of breath will be much better I explained to the family expectation with him I do not believe he is candis be able to care for himself much she need probably assisted living the whole time. Apparently the family had slight arrangement at [facility] for assisted living and mild memory loss eventually if he is declining. Talked about the possibility of signing him up for hospice. Objective - Vital Signs Vital signs: Vital Signs Temp 97.5 F L 04/04/24 00:29 Pulse 59 L 04/04/24 00:29 Resp 17 04/04/24 00:29 BP 96/66 04/04/24 00:29 Pulse Ox 94 L 04/04/24 00:29 FiO2 Intake & Output 04/03/24 04/03/24 04/04/24 06:59 18:59 06:59 Output Total 1250 2200 Balance -1250 -2200 Weight 95.5 kg 93 kg Output: Urine 1250 2200 Other: Voiding Method External Catheter External Catheter External Catheter # Bowel Movements 1 - Labs CBC & Chem 7: 04/04/24 04:32 04/04/24 04:32 Labs: Abnormal Lab Results - Last 24 Hours (Table) 04/03/24 04/04/24 04/04/24 Range/Units 04:31 04:32 04:32 Plt Count 112 L 118 L (150-450) k/uL Potassium 3.2 L (3.5-5.1) mmol/L Carbon Dioxide 39 H (22-30) mmol/L Glucose 101 H (74-99) mg/dL Calcium 8.3 L (8.4-10.2) mg/dL Total Protein 5.6 L (6.3-8.2) g/dL Albumin 3.2 L (3.5-5.0) g/dL
[2024-04-05] MEDS: APIXABAN 5 MG TAB PO SCH (20:55)
--- NOTE | 2024-04-05 23:47 | P.PN ---
Subjective Progress Note Date: 04/05/24 On 04/04/2024, the patient is being seen for a follow-up. The patient is resting comfortably in bed. Bedside thoracentesis was done of the right lung and a total of 1. was aspirated without any complications. The postprocedure chest x-ray shows no complication. There is some residual right-sided pleural effusion and a small left-sided pleural effusion. Clinically stable on 2 L of oxygen by nasal cannula with a pulse ox of 95%. No respiratory difficulties. Remains on Lasix 40 mg p.o. twice a day and Aldactone 25 mg p.o. daily. Remains on metoprolol 100 mg p.o. twice a day. Blood work shows a white cell count of 7, hemoglobin 13.9 and platelet count of 118. BUN is 16 with a creatinine of 0 .8. proBNP level was 4932. Thyroid function test have been essentially within normal limits. On today's evaluation of 04/05/2024, the patient has no specific complaints. The patient is currently on 2 L of oxygen by nasal cannula with a pulse ox of 93%. Thoracentesis was done yesterday and the fluid itself is transudate based on low protein and low LDH. Repeat chest x-ray shows residual bilateral pleural effusions. No evidence of any complications from the procedure. The patient is currently on Lasix 40 mg p.o. twice a day and Aldactone 25 mg p.o. daily. Rest of the medications remain unchanged. Calm and comfortable, has underlying dementia. Cardiology on the case. No other significant events otherwise since the procedure. Objective - Vital Signs Vital signs: Vital Signs Temp 97.4 F L 04/05/24 20:00 Pulse 107 H 04/05/24 20:00 Resp 18 04/05/24 20:00 BP 100/64 04/05/24 20:00 Pulse Ox 93 L 04/05/24 20:00 FiO2 Intake & Output 04/05/24 04/05/24 04/06/24 06:59 18:59 06:59 Output Total 200 375 Balance -200 -375 Weight 83.5 kg Output: Urine 200 375 Other: Voiding Method External Catheter External Catheter External Catheter # Bowel Movements 1 - Exam General Appearance: Alert, cooperative, quite bit confused in mild distress. The patient is currently on 2 L of oxygen by nasal cannula. Breathing comfortably without use of accessory muscles of breathing. Neck HEENT: Supple, no lymphadenopathy, no thyroid enlargement, no carotid bruits. Lungs: Decreased breath sound bilaterally with fine rhonchi positive mild crackles in the bases. Chest Wall: Decreased expansion with deep inspiration no tenderness and no deformity was found on exam, no costochondral pain or discomfort. The patient has dullness to percussion and the findings are consistent with bilateral pleural effusion worse on the right. Heart: Irregular rate and rhythm, S1, S2 positive S3 and a positive JVD. With systolic murmur in the apex grade 3/6 Back: Symmetric, no curvature, ROM normal, no CVA tenderness. Abdomen: Soft, non-tender, bowel sounds active all four quadrants, no masses, no organomegaly. 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 Pulses: 2+ and symmetric. Skin: Skin color, texture, tugor normal, no rashes or lesions. Neurologic: Alert confused, cranial nerves II through XII intact, positive generalized weakness with abnormal balance and gait. - Labs CBC & Chem 7: 04/04/24 04:32 04/04/24 04:32 Labs: Microbiology - Last 24 Hours (Table) 04/04/24 11:56 Gram Stain - Preliminary Pleural Fluid Body Fluid Culture - Preliminary Assessment and Plan Plan: Acute hypoxic respiratory failureAcute hypoxic currently on 2 L of oxygen by nasal cannula. Presentation is typical with CHF and bilateral pleural effusion and the patient underwent a right-sided thoracentesis with removal of 1.3 throughout pleural fluid without any complications. The pleural fluid is a transudate based on low LDH and protein criteria. CHF with mild impairment of LV function/systolic heart failure with a component of diastolic failure. The patient has bilateral pleural effusion. proBNP is elevated at the time of admission. Cardiology on the case. The patient is currently on metoprolol and Aldactone and Lasix. Bilateral pleural effusion right more than left likely secondary to CHF, the patient is post thoracentesis the right lung Chronic A-fib maintained on metoprolol 25 mg 3 times daily in addition to Cardizem 120 mg p.o. daily and long-term anticoagulation with Eliquis Moderate to severe mitral regurgitation Increased lower extremity edema secondary to above Hypertension Hyperlipidemia Recurrent UTIs Advanced dementia History of urinary retention maintained on Flomax Plan Currently on 3 L of oxygen by nasal cannula The pleural fluid is a transudate No need for further thoracentesis as the treatment is going to be essentially medical management of CHF. Continue Lasix. Continue Aldactone. Optimize CHF. Metoprolol to be continued a dose of 100 mg p.o. twice a day. Will continue to follow.
--- NOTE | 2024-04-06 00:24 | P.PN ---
Subjective Progress Note Date: 04/05/24 HISTORY OF PRESENT ILLNESS: 83-year-old office patient with history of A-fib, hypertension, recurrent UTI, advanced dementia, mild CHF, BPH, hyperlipidemia and other lives in [facility] after 3 hospitalization [id number] to [facility] for CHF with worsening symptoms require O2 and become quite debilitated to have another UTI with severe encephalopathy related to it. Patient ended up going to [facility] and has been on the semiassisted living. Found by family on Tuesday to have severe dyspnea, shortness of breath, with severe fluid retention. Was instructed to bring him to the emergency department at [facility] where was seen and evaluated found to have large pleural effusion bilaterally BNP was 2200 only patient was having significant dyspnea and shortness of breath he was in A- fib with diffuse STT wave change on 2 L of O2 pulse ox was only 90 percentile has an advanced dementia as a mention. Was diagnosed with acute hypoxic respiratory failure secondary to congestive heart failure most likely systolic on diastolic dysfunction also chronic A-fib with rapid ventricular response and significant electrolyte imbalance along with pleural effusion secondary to fluid overload from his CHF. 04/04/2024: Patient is lying in bed still having slight shortness of breath, wearing oxygen at 2 L to keep his pulse ox above 92 percentile, reviewed chest x-ray from yesterday continue to show significant amount of right-sided pleural effusion. Echocardiogram was done earlier showed severe mitral regurgitation with severe right-sided atrial enlargement and ejection fraction of 45 percentile. Sadly his weight was not measured right it went up not down even he is losing 1000 to 2000 cc of fluid every single day as a negative balance. Will consult pulmonary for thoracentesis today which would become diagnostic and therapeutic same time to reduce the right-sided pressure and probably help with his edema as well. Patient continued to have significant confusion which is not changed we will ask to do PT OT and social security assessor probably to help with patient discharge planning for the next 48 hours. 04/05/2024: Had his thoracentesis done successfully and has been doing much better breathing has improved some is still on 2 L of O2 to keep his pulse ox above 93 percentile, still have slight congestion was on furosemide, spironolactone which we will continue both medication at this point but watch blood pressure to make sure is not milligrams down. His dementia and memory is much worse than before which there is component of metabolic encephalopathy and hypoxia causing more problem at this point. Long talk with the daughter who apparently is in touch with hospice via residential home care and she believes she is going to do hospice with residential home care start tomorrow probably by having him transferred back to [facility] and have him resume care. REVIEW OF SYSTEMS: CONSTITUTIONAL: Well-developed quite bit confused in mild respiratory distress. EARS, NOSE, MOUTH, THROAT, and FACE: No sore throat, lymphadenopathy, carotid bruits or deformity. RESPIRATORY: Positive shortness of breath cough or wheezes. CARDIOVASCULAR: Positive PND orthopnea palpitation and fluid overload with no angina. GASTROINTESTINAL: No Abd pain, Nausea or vomiting, no Diarrhea or constipation, No GI Bleed, no distention or masses. GENITOURINARY: Negative for Hematuria or UTI, no kidney stones. INTEGUMENT/BREAST: Anasarca and edema. HEMATOLOGIC/LYMPHATIC: Negative for bleed or purpura. MUSCULOSKELTAL: Negative for Myalgia or arthralgia. NEURLOGICAL: No LOC, Sz or syncope, blurred vision dizziness or abnormality.. Advanced dementia. BEHAVIORAL/PSYCH: Positive dementia. ENDOCRINE: Negative. PHYSICAL EXAMINATION: General Appearance: Alert, cooperative, quite bit confused in mild distress. Neck HEENT: Supple, no lymphadenopathy, no thyroid enlargement, no carotid bruits. Lungs: Decreased breath sound bilaterally with fine rhonchi positive mild crackles in the bases. Chest Wall: Decreased expansion with deep inspiration no tenderness and no deformity was found on exam, no costochondral pain or discomfort. Expect clinically more right-sided pleural effusion than before. Heart: Irregular rate and rhythm, S1, S2 positive S3 +5 cm JVD. With systolic murmur in the apex. Back: Symmetric, no curvature, ROM normal, no CVA tenderness. Abdomen: Soft, non-tender, bowel sounds active all four quadrants, no masses, no organomegaly. 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 Pulses: 2+ and symmetric. Skin: Skin color, texture, tugor normal, no rashes or lesions. Neurologic: Alert confused, cranial nerves II through XII intact, positive generalized weakness with abnormal balance and gait. ASSESSMENT AND PLAN: _Congestive heart failure: Still on Lasix along with spironolactone continue IV Lasix at 40 mg twice a day continue to watch his urine output and daily weight. Continue metoprolol as well continue to watch for any fluid retention and significant increase in weight. _Pleural effusion: Post thoracentesis much better so far shortness of breath has improved. _A-fib with RVR: Still on Eliquis 5 mg twice a day, metoprolol 25 mg 3 times a day with pulse rate slightly bit down. Patient was on diltiazem CD1 120 mg as an outpatient. Will continue anticoagulation. _Severe mitral regurgitation: Patient still seen cardiology decided medical management with patient age and comorbidities not a candidate for any intervention at this point. _Anasarca: Continue aggressive management for now but patient might not improve beyond a certain point. _Hyperlipidemia: Continue atorvastatin 20 mg a day. _Hypertension: Has been doing well on metoprolol and Cardizem will introduce smaller dose of ARB specially the kidney function will allow. _Recurrent urinary tract infection with UA was positive recently was on Cipro 250 mg twice a day apparently has finished a dose UA and culture will be done. _Worsening dementia: Was on donepezil 10 mg at bedtime has been held resume medication still on Seroquel as well. _Urinary retention: Will continue Flomax 0.4 mg daily. _Mild reactive airway/asthma: Has been on DuoNeb and O2 continue both medication. CODE STATUS: DO NOT RESUSCITATE Discussion: Long discussion with the family today specially with his current comorbidity and out of rhythm in the hospital is very high they want to change him to DO NOT RESUSCITATE and implement hospice as early as tomorrow via residential home care. Arrangement will be made for family to meet with hospice and will help to make this adjustment. Objective - Vital Signs Vital signs: Vital Signs Temp 97.6 F 04/05/24 01:56 Pulse 61 04/05/24 01:56 Resp 18 04/05/24 01:56 BP 92/57 04/05/24 01:56 Pulse Ox 95 04/05/24 01:56 FiO2 Intake & Output 04/04/24 04/04/24 04/05/24 06:59 18:59 06:59 Output Total 1400 300 Balance -1400 -300 Weight 93 kg 93 kg 83.5 kg Output: Urine 1400 300 Other: Voiding Method External Catheter External Catheter External Catheter # Bowel Movements 1 1 - Labs CBC & Chem 7: 04/04/24 04:32 04/04/24 04:32 Labs: Microbiology - Last 24 Hours (Table) 04/04/24 11:56 Gram Stain - Preliminary Pleural Fluid
[2024-04-06 07:15] VITALS: BP 96/65; PULSE 71; RESP 18; TEMP 97.3
--- NOTE | 2024-04-06 11:50 | P.DS ---
Providers Date of admission: 03/30/24 22:29 Attending physician: Eloy Laguna Consults: 03/30/24 22:28 Consult Physician Routine Consulting Provider: Krysta Lund Consult Reason/Comments: chf Do you want consulting provider notified?: Yes 04/03/24 07:21 Consult Physician Routine Consulting Provider: Malachi Rodríguez Consult Reason/Comments: R sided Pleural effusion Do you want consulting provider notified?: Yes Primary care physician: [facility] Course: HISTORY OF PRESENT ILLNESS: 83-year-old office patient with history of A-fib, hypertension, recurrent UTI, advanced dementia, mild CHF, BPH, hyperlipidemia and other lives in [facility] after 3 hospitalization [id number] to [facility] for CHF with worsening symptoms require O2 and become quite debilitated to have another UTI with severe encephalopathy related to it. Patient ended up going to [place] and has been on the semiassisted living. Found by family on Tuesday to have severe dyspnea, shortness of breath, with severe fluid retention. Was instructed to bring him to the emergency department at [facility] where was seen and evaluated found to have large pleural effusion bilaterally BNP was 2200 only patient was having significant dyspnea and shortness of breath he was in A- fib with diffuse STT wave change on 2 L of O2 pulse ox was only 90 percentile has an advanced dementia as a mention. Was diagnosed with acute hypoxic respiratory failure secondary to congestive heart failure most likely systolic on diastolic dysfunction also chronic A-fib with rapid ventricular response and significant electrolyte imbalance along with pleural effusion secondary to fluid overload from his CHF. 04/04/2024: Patient is lying in bed still having slight shortness of breath, wearing oxygen at 2 L to keep his pulse ox above 92 percentile, reviewed chest x-ray from yesterday continue to show significant amount of right-sided pleural effusion. Echocardiogram was done earlier showed severe mitral regurgitation with severe right-sided atrial enlargement and ejection fraction of 45 percentile. Sadly his weight was not measured right it went up not down even he is losing 10 00 to 2000 cc of fluid every single day as a negative balance. Will consult pulmonary for thoracentesis today which would become diagnostic and therapeutic same time to reduce the right-sided pressure and probably help with his edema as well. 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 04/05/2024: Had his thoracentesis done successfully and has been doing much better breathing has improved some is still on 2 L of O2 to keep his pulse ox above 93 percentile, still have slight congestion was on furosemide, spironolactone which we will continue both medication at this point but watch blood pressure to make sure is not milligrams down. His dementia and memory is much worse than before which there is component of metabolic encephalopathy and hypoxia causing more problem at this point. Long talk with the daughter who apparently is in touch with hospice via residential home care and she believes she is going to do hospice with residential home care start tomorrow probably by having him transferred back to [facility] and have him resume care. 04/06/2024: Patient is laying in bed comfortable is more confused than before, edema and swelling is better than before, is less hypoxic still on O2 by nasal cannula. Family made an arrangement to have him go back to [facility] and to do hospice via residential home care. Discharge planning will be done today. REVIEW OF SYSTEMS: CONSTITUTIONAL: Well-developed quite bit confused in mild respiratory distress. EARS, NOSE, MOUTH, THROAT, and FACE: No sore throat, lymphadenopathy, carotid bruits or deformity. RESPIRATORY: Positive shortness of breath cough or wheezes. CARDIOVASCULAR: Positive PND orthopnea palpitation and fluid overload with no angina. GASTROINTESTINAL: No Abd pain, Nausea or vomiting, no Diarrhea or constipation, No GI Bleed, no distention or masses. GENITOURINARY: Negative for Hematuria or UTI, no kidney stones. INTEGUMENT/BREAST: Anasarca and edema. HEMATOLOGIC/LYMPHATIC: Negative for bleed or purpura. MUSCULOSKELTAL: Negative for Myalgia or arthralgia. NEURLOGICAL: No LOC, Sz or syncope, blurred vision dizziness or abnormality.. Advanced dementia. BEHAVIORAL/PSYCH: Positive dementia. ENDOCRINE: Negative. PHYSICAL EXAMINATION: General Appearance: Alert, cooperative, quite bit confused in mild distress. Neck HEENT: Supple, no lymphadenopathy, no thyroid enlargement, no carotid bruits. Lungs: Decreased breath sound bilaterally with fine rhonchi positive mild crackles in the bases. Chest Wall: Decreased expansion with deep inspiration no tenderness and no deformity was found on exam, no costochondral pain or discomfort. Expect clinically more right-sided pleural effusion than before. Heart: Irregular rate and rhythm, S1, S2 positive S3 +5 cm JVD. With systolic murmur in the apex. Back: Symmetric, no curvature, ROM normal, no CVA tenderness. Abdomen: Soft, non-tender, bowel sounds active all four quadrants, no masses, no organomegaly. 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 Pulses: 2+ and symmetric. Skin: Skin color, texture, tugor normal, no rashes or lesions. Neurologic: Alert confused, cranial nerves II through XII intact, positive generalized weakness with abnormal balance and gait. ASSESSMENT AND PLAN: _Congestive heart failure: Still on Lasix along with spironolactone continue IV Lasix at 40 mg twice a day continue to watch his urine output and daily weight. Continue metoprolol as well continue to watch for any fluid retention and significant increase in weight. _Pleural effusion: Post thoracentesis much better so far shortness of breath has improved. _A-fib with RVR: Still on Eliquis 5 mg twice a day, metoprolol 25 mg 3 times a day with pulse rate slightly bit down. Patient was on diltiazem CD1 120 mg as an outpatient. Will continue anticoagulation. _Severe mitral regurgitation: Patient still seen cardiology decided medical management with patient age and comorbidities not a candidate for any intervention at this point. _Anasarca: Continue aggressive management for now but patient might not improve beyond a certain point. _Hyperlipidemia: Continue atorvastatin 20 mg a day. _Hypertension: Has been doing well on metoprolol and Cardizem will introduce smaller dose of ARB specially the kidney function will allow. _Recurrent urinary tract infection with UA was positive recently was on Cipro 250 mg twice a day apparently has finished a dose UA and culture will be done. _Worsening dementia: Was on donepezil 10 mg at bedtime has been held resume medication still on Seroquel as well. _Urinary retention: Will continue Flomax 0.4 mg daily. _Mild reactive airway/asthma: Has been on DuoNeb and O2 continue both medication. CODE STATUS: DO NOT RESUSCITATE Discussion: Patient be transferred back to [facility] and will be doing hospice with the help of residential home care. Hospital course: Patient was hospitalized on 04/01/2024 with significant anasarca edema and shortness of breath found to be in congestive heart failure at the time and found to have UTI with severe encephalopathy. Continue to have significant confusion. His BNP was mildly elevated at 2 2200 he has slight change in his EKG declined to continue to have finding with his chest x-ray consistent with congestive heart failure, O2 level was at 92 percentile on 2 L via nasal cannula. Also he was in A-fib with RVR with pulse rate running at 90 to 110 bpm. Patient chest x-ray showed large pleural effusion on the right side which despite doing IV diuretics with 40 mg of furosemide every 8 hours did not help to make it better. Pulmonary consultation was done and patient ended up having thoracentesis for which equal to 2000 cc of fluid removed from the pleural space on the right side. He felt slightly was better after his procedure done shortness of breath has improved significantly. Continues to have slight anasarca and edema required a combination of spironolactone along with furosemide which had helped some. Family approach this by feeling he is declining very fast I keep him more comfortable on Lovenox When I do hospice via residential home care at the [facility]. Arrangement for him to be transferred today to [facility] to do hospice. Time spent on discharging patient was over 35 minutes. Patient Condition at Discharge: Good Plan - Discharge Summary Discharge Rx Participant: Yes New Discharge Prescriptions: New Furosemide [Lasix] 40 mg PO BID@0900,1600 #60 tab QUEtiapine [SEROquel] 12.5 mg PO HS PRN #30 tab PRN Reason: Agitation Potassium Chloride ER [K-Dur 20] 20 meq PO BID #60 tab Metoprolol Tartrate [Lopressor] 100 mg PO BID #60 tab Continue Cholecalciferol [Vitamin D3 (25 Mcg = 1000 Iu)] 50 mcg PO DAILY Spironolactone [Aldactone] 12.5 mg PO DAILY Folic Acid 1 mg PO DAILY Donepezil [Aricept] 10 mg PO HS Acetaminophen Tab [Tylenol] 650 mg PO Q6H PRN PRN Reason: Fever And/ Or Pain Ascorbic Acid [Vitamin C] 500 mg PO DAILY Tamsulosin [Flomax] 0.4 mg PO DAILY Rosuvastatin [Crestor] 10 mg PO HS Mv-Min/Folic/K1/Lycopen/Lutein [Centrum Silver Men Tablet] 1 tab PO DAILY Ipratropium-Albuterol Nebulize [Duoneb 0.5 mg-3 mg/3 ml Soln] 3 ml INHALATION RT-QID PRN PRN Reason: Shortness Of Breath Diltiazem Cd [Cardizem CD] 120 mg PO DAILY Apixaban [Eliquis] 5 mg PO BID@0800,1700 Discontinued Metoprolol Tartrate [Lopressor] 25 mg PO Q8HR@0600,1400,2200 Furosemide [Lasix] 40 mg PO DAILY Ciprofloxacin HCl [Cipro] 250 mg PO BID Discharge Medication List Ascorbic Acid [Vitamin C] 500 mg PO DAILY 03/20/21 [History] Cholecalciferol [Vitamin D3 (25 Mcg = 1000 Iu)] 50 mcg PO DAILY 03/20/21 [History] Acetaminophen Tab [Tylenol] 650 mg PO Q6H PRN 03/31/24 [History] Apixaban [Eliquis] 5 mg PO BID@0800,1700 03/31/24 [History] Diltiazem Cd [Cardizem CD] 120 mg PO DAILY 03/31/24 [History] Donepezil [Aricept] 10 mg PO HS 03/31/24 [History] Folic Acid 1 mg PO DAILY 03/31/24 [History] Ipratropium-Albuterol Nebulize [Duoneb 0.5 mg-3 mg/3 ml Soln] 3 ml INHALATION RT-QID PRN 03/31/24 [History] Mv-Min/Folic/K1/Lycopen/Lutein [Centrum Silver Men Tablet] 1 tab PO DAILY 03/31/24 [History] Rosuvastatin [Crestor] 10 mg PO HS 03/31/24 [History] Spironolactone [Aldactone] 12.5 mg PO DAILY 03/31/24 [History] Tamsulosin [Flomax] 0.4 mg PO DAILY 03/31/24 [History] Furosemide [Lasix] 40 mg PO BID@0900,1600 #60 tab 04/06/24 [Rx] Metoprolol Tartrate [Lopressor] 100 mg PO BID #60 tab 04/06/24 [Rx] Potassium Chloride ER [K-Dur 20] 20 meq PO BID #60 tab 04/06/24 [Rx] QUEtiapine [SEROquel] 12.5 mg PO HS PRN #30 tab 04/06/24 [Rx] Follow up Appointment(s)/Referral(s): Eloy Laguna MD [Primary Care Provider] - 1-2 days [facility] [NON-STAFF] - 1-2 Days ([facility] will call you to schedule your in home physical therapy services. ) Discharge Disposition: HOME WITH HOSPICE
--- NOTE | 2024-04-09 20:28 | CDI ---
Documentation Clarification Form Date: 04/09/2024 08:14:00 PM From: Destini Abreu Phone: Admit Date: 03/30/2024 10:29:00 PM Patient Name: Ryan Olivier Visit Number: [id number] Discharge Date: 04/06/2024 12:26:00 PM ATTENTION: The Clinical Documentation Specialists (CDI) and [facility] Coding Staff appreciate your assistance in clarifying documentation. Please respond to the clarification below the line at the bottom and electronically sign. The CDI & [facility] Coding staff will review the response and follow-up if needed. Please note: Queries are made part of the Legal Health Record. If you have any questions, please contact the author of this message via ITS. Dr. Eloy Laguna Cardiomyopathy is documented per Progress Note 04/02 & 04/03. Additional clarification regarding the type of cardiomyopathy is requested. History/Risk Factors: 88yo, ACCHF, HTN, perm A Fib, HLD, vascular dementia, AHRF, met enceph, BPH w retention Clinical indicators: Radiology Reports: There is small to moderate size left and moderate to large size right pleural effusions. There is central vascularcongestionand bibasilaropacities favoringcompressiveatelectasis.The cardiac silhouette size is upper limits of normal. The osseous structures are intact. Echocardiogram: impairedLV function 45-50%, moderate to severe MR. Treatment: Increase Lopressor to 100 mg twice daily and discontinue Cardizem due to mild cardiomyopathy. Please clarify the type of cardiomyopathy, if known: [ XX ] Ischemic [ ] Drug (Cardizem) Induced [ ] Secondary, please indicate underlying cause if known [ ] Other, please specify [ ] Unable to determine (Template Last Revised: December 2020) MTDD
--- NOTE | 2024-04-09 20:38 | CDI ---
Documentation Clarification Form Date: 04/09/2024 08:28:45 PM From: Destini Abreu Phone: Admit Date: 03/30/2024 10:29:00 PM Patient Name: Ryan Olivier Visit Number: [id number] Discharge Date: 04/06/2024 12:26:00 PM ATTENTION: The Clinical Documentation Specialists (CDI) and [facility] Coding Staff appreciate your assistance in clarifying documentation. Please respond to the clarification below the line at the bottom and electronically sign. The CDI & [facility] Coding staff will review the response and follow-up if needed. Please note: Queries are made part of the Legal Health Record. If you have any questions, please contact the author of this message via ITS. Dr. Eloy Laguna Vascular dementia is documented per H&P. Additional clarification regarding the severity and etiology of vascular dementia is requested. Patient history/risk factors: 88yo, ACCHF, HTN, perm A Fib, HLD, vascular dementia, AHRF, met enceph, BPH w retention Clinical indicators: Patient does havedementiaat baseline positiveprobablyvascular dementia. Patientdoes not have any valvarabnormalitiesdoes not have anypulmonary hypertension. Treatment: Pt was made DNR and returned to [facility] on Hospice Please clarify the severity and Etiology of vascular dementia Severity [ ] Mild [XX ] Moderate [ ] Severe Etiology [ ] Arteriosclerosis [ XX ] Sequel of cerebrovascular disease) [ ] Other condition or cause of dementia, please specify [ ] Unable to determine Please indicate any behavioral disturbances associated with the condition (such as aggression, combative or wandering) (Template Last Revised: December 2020) MTDD
== END 2024-04-06 12:26 | disposition still patient (30) | DRG 291 ==
LOC: EC 20:03 → 4SSUR 22:29
PROVIDERS: ADMIT Internal Medicine Geriatric Medicine; ATTEND Internal Medicine Geriatric Medicine
PROC: 0W993ZZ Drainage of Right Pleural Cavity, Percutaneous Approach (ICD-10-PCS; principal; 2024-04-04)
DX: I11.0 Hypertensive heart disease with heart failure (principal); G93.41 Metabolic encephalopathy; J96.01 Acute respiratory failure with hypoxia; I50.43 Acute on chronic combined systolic (congestive) and diastolic (congestive) heart failure; J91.8 Pleural effusion in other conditions classified elsewhere; I48.21 Permanent atrial fibrillation; F01.B0 Vascular dementia, moderate, without behavioral disturbance, psychotic disturbance, mood disturbance, and anxiety; Z66 Do not resuscitate; Z51.5 Encounter for palliative care; Z99.81 Dependence on supplemental oxygen; Z79.01 Long term (current) use of anticoagulants; I34.0 Nonrheumatic mitral (valve) insufficiency; J45.998 Other asthma; I69.919 Unspecified symptoms and signs involving cognitive functions following unspecified cerebrovascular disease; I25.5 Ischemic cardiomyopathy; E78.5 Hyperlipidemia, unspecified; E87.6 Hypokalemia; M17.0 Bilateral primary osteoarthritis of knee; N40.1 Benign prostatic hyperplasia with lower urinary tract symptoms; R33.8 Other retention of urine; Z79.899 Other long term (current) drug therapy; Z87.440 Personal history of urinary (tract) infections
CPT/HCPCS: 36415; 71045; 71046; 76604; 80048; 80053; 82465; 82945; 83605; 83615; 83735; 83880; 84100; 84157; 84443; 84484; 85025; 85027; 85610; 85730; 87070; 87205; 88108; 88305; 89050; 93005; 93306; 94640; 94760; 99285